=== PATIENT | female | born 1990 | race Caucasian/White ===

== ENCOUNTER → 2018-01-05 09:51 | Outpatient (CLI) | payer MEDICAID, SELFPAY ==
[2018-01-05 11:14] LABS: hCG Titer Quant., Serum < 1 mIU/mL (<9 non-preg)
== END ==
PROVIDERS: Visit Provider Obstetrics & Gynecology
DX: N92.5 Other specified irregular menstruation (principal)
CPT/HCPCS: 36415; 84702

== ENCOUNTER → 2018-03-16 10:34 | Outpatient (CLI) | payer MEDICAID, SELFPAY ==
--- NOTE | 2018-03-16 10:36 | US_ITS ---
STUDY: ULTRASOUND TRANSVAGINAL CLINICAL: Female, 27 years old. Irregular menstruation. Pelvic pain. TECHNIQUE: Transvaginal COMPARISON: None. FINDINGS: The uterus is normal in size contour and position and measures 5.7 x 4.2 x 2.9 cm with an endometrial stripe thickness of 4 mm. Both ovaries are visualized and demonstrate normal Doppler flow. The right ovary measures 3.7 x 3.1 x 2.1 cm and the left 4.0 x 2.8 x 2.2 cm. Multiple follicular cysts are seen at the periphery of both ovaries. Polycystic ovarian disease suspected US/Pelvic (Non ) IMPRESSION: Prominent ovaries with follicular cysts arranged at the periphery. Polycystic ovarian disease suspected. No free fluid in the cul-de-sac Electronically Signed: Clay Lr, at 7:29 EDT Tel , Service support ,
--- NOTE | 2018-03-16 11:03 | US_ITS ---
STUDY: ULTRASOUND TRANSVAGINAL CLINICAL: Female, 27 years old. Irregular menstruation. Pelvic pain. TECHNIQUE: Transvaginal COMPARISON: None. FINDINGS: The uterus is normal in size contour and position and measures 5.7 x 4.2 x 2.9 cm with an endometrial stripe thickness of 4 mm. Both ovaries are visualized and demonstrate normal Doppler flow. The right ovary measures 3.7 x 3.1 x 2.1 cm and the left 4.0 x 2.8 x 2.2 cm. Multiple follicular cysts are seen at the periphery of both ovaries. Polycystic ovarian disease suspected US/Transvaginal Non- IMPRESSION: Prominent ovaries with follicular cysts arranged at the periphery. Polycystic ovarian disease suspected. No free fluid in the cul-de-sac Electronically Signed: Clay Lr, at 7:29 EDT Tel , Service support ,
== END ==
PROVIDERS: Family Provider Preventive Medicine Occupational Medicine; PCP Preventive Medicine Occupational Medicine; Visit Provider Obstetrics & Gynecology
DX: N92.6 Irregular menstruation, unspecified (principal); N80.3 Endometriosis of pelvic peritoneum; E28.2 Polycystic ovarian syndrome
CPT/HCPCS: 76830; 76856; 93976

== ENCOUNTER → 2018-04-11 13:35 | Outpatient (CLI) | payer MEDICAID, SELFPAY ==
[2018-04-11 16:26] LABS: Chlamydia Trachomatis by PCR Negative (Negative); Neisserai gonorrhoeae by PCR Negative (Negative); Probe Check PASS; Sample Adequacy Control PASS; Specimen Processing Control PASS
[2018-04-14 11:11] LABS: HPV Reflexed? NOT INDICATED
== END ==
PROVIDERS: Visit Provider Obstetrics & Gynecology
DX: Z01.419 Encounter for gynecological examination (general) (routine) without abnormal findings (principal); Z11.3 Encounter for screening for infections with a predominantly sexual mode of transmission
CPT/HCPCS: 87491; 87591; 88175; G0145

== ENCOUNTER 2018-04-13 17:39 | Emergency (ER) | payer MEDICAID, SELFPAY ==
[2018-04-13 17:39] VITALS: BP 134/89; PULSE 114; RESP 18; TEMP 37; O2SAT 98; BMI 32.8
[2018-04-13] MEDS: Morphine 4 MG/ML Syringe IV (18:47)
[2018-04-13] MEDS: Ondansetron 4 MG/2 ML Vial IV (18:48)
[2018-04-13] MEDS: 0.9% Normal Saline 1,000 ML 1000 ML IV (18:48)
[2018-04-13 18:51] LABS: Absolute Lymphocyte Count 5.15 X10^3/ul (0.83-4.51); Absolute Neutrophil Count 5.8 X10^3/uL (2.0-7.7); Basophil# 0.02 X10^3/uL; Basophil% 0.2 % (0-1); Differential Indicated SCAN CRITERIA MET; Eosinophil# 0.39 X10^3/uL; Eosinophils% 3.2 % (0-5); Hematocrit 41.3 % (37-47); Hemoglobin 13.8 g/dl (12.0-15.0); Lymphocyte # 5.15 X10^3/ul (4.0); Lymphocyte % 41.9 % (19-41); Mean Corp Hgb Conc 33.4 g/gl (32-36); Mean Corpuscular Hgb 30.9 pg (27.0-32.0); Mean Corpuscular Volume 92.4 fL (81-99); Mean Platelet Vol. 10.3 fl (6.2-12.0); Monocyte# 0.94 X10^3/uL; Monocyte% 7.6 % (0-10); Neutrophil # 5.77 X10^3/uL (2.7-7.7); Neutrophil % 46.9 % (47-70); POSITIVE COUNT NO; POSITIVE DIFFERENTIAL YES; POSITIVE MORPHOLOGY YES; Platelet Count 346 K/mm3 (150-450); RBC Distribution Width CV 12.9 % (11.6-14.6); RBC Distribution Width SD 43.6 fl (35.1-43.9); Red Blood Count 4.47 M/mm3 (4.2-5.4); White Blood Count 12.3 K/mm3 (4.4-11.0)
[2018-04-13 19:12] LABS: Pregnancy, Serum, hCG Quali. NEGATIVE Negative (0-9 Nonpreg)
[2018-04-13 19:14] LABS: Differential Comment SCANNED
--- NOTE | 2018-04-13 19:33 | ED.DCSUM_ITS ---
- ER Visit Summary Date of Service: 04/13/18 Chief Complaint: Vaginal bleeding and pelvic pain History of Present Illness: The patient is a [address] Elana Puente. She reports that she has vaginal bleeding that has been essentially constant for the past year. She states it became heavier yesterday. She reports changing a tampon approximately 18 times per day. She also has pelvic pain that began yesterday. She describes it as a stabbing, throbbing pain that is 10 out of 10 severity. Is worsened by movement and relieved by remaining still. She is not taking anything for pain. She denies any vaginal discharge. No dysuria or frequency. She is a . She does have a history of polycystic ovarian syndrome and endometriosis. Physical Examination: Vitals: Stable. Afebrile. General: Well-nourished and well-developed. Head: Normocephalic atraumatic. Neck: Supple, no lymphadenopathy. No JVD. Nontender. Cardiovascular: Regular rate and rhythm. No murmurs. Respiratory: No respiratory distress. Clear to auscultation bilaterally. Abdominal: Soft, moderate suprapubic tenderness to palpation, nondistended, normal bowel sounds. No guarding, rebound, or peritoneal signs. Pelvic: Refused. Back: Nontender. Extremities: Nontender, no edema. Skin: Normal color, no rash. Neurologic: Alert and oriented ?3. Cranial nerves II through XII are intact. Normal strength and sensation. Psych: Normal affect. Test Results: CBC is remarkable for a white count of 12.3 with 47 segmented neutrophils and 42 lymphocytes. Of note her hemoglobin is 13.8. Her test is negative. Patient refused an ultrasound. Emergency Department Course and Treatment: Patient was given a dose of morphine and Zofran IV. She is resting comfortably. Treatment Plan: The patient has an appointment to see Dr. Elana Puente tomorrow. She will be given a prescription for 6 Percocet for pain overnight. Instructed to follow-up as previously scheduled for further evaluation and treatment. Return to the emergency department for any worsening symptoms. Disposition: To home in improved and stable condition. Impression: 1. Dysfunctional uterine bleeding. This note was generated with [employer] software. It may contain incorrect words, spelling, and punctuation that were not noted in review of the chart prior to signing ED Disposition - Plan for ED Patient: Disposition: Home or Assisted Living Chief Complaint: Vag Bleeding Instructions: ED Bleed Irregular Vaginal Prescriptions: Oxycodone HCl/Acetaminophen [Percocet 5/325] 1 tablet PO Q6H PRN PRN 2 Days #6 tablet PRN Reason: Pain Naproxen [Naprosyn] 500 mg PO BID #14 tablet Referrals: Cathy Rosales MD [STAFF PHYSICIAN] - Keep Ines appointment
[2018-04-13 19:45] VITALS: BP 128/74; PULSE 89; RESP 16; O2SAT 99
== END 2018-04-13 19:45 | disposition home or self-care (01) ==
LOC: ED 18:30
PROVIDERS: Emergency Provider Emergency Medicine; Family Provider Preventive Medicine Occupational Medicine; PCP Preventive Medicine Occupational Medicine
DX: N93.8 Other specified abnormal uterine and vaginal bleeding (principal); F90.9 Attention-deficit hyperactivity disorder, unspecified type; G44.009 Cluster headache syndrome, unspecified, not intractable; Z72.0 Tobacco use
CPT/HCPCS: 84703; 85025; 99283; J7030; A4216; J2405

== ENCOUNTER → 2018-04-14 11:27 | Outpatient (CLI) | payer MEDICAID, SELFPAY ==
[2018-04-14 14:08] LABS: Cholesterol 218 mg/dL (200); Glucose 88 mg/dL (74-106); High Density Lipoprotein 50 mg/dL; Triglycerides 113 mg/dL; Very Low Density Lipoprotein 23 mg/dL (5-40)
[2018-04-15 08:29] LABS: Insulin 8.6 mU/L (2.6-37.6); Vitamin B12 381 pg/mL (211-911); Vitamin D,25 Hydroxy 37.4 ng/mL (29.95-100.01)
== END ==
PROVIDERS: Visit Provider Obstetrics & Gynecology
DX: E28.2 Polycystic ovarian syndrome (principal); Z68.30 Body mass index [BMI] 30.0-30.9, adult
CPT/HCPCS: 36415; 80061; 82306; 82607; 82947; 83525

== ENCOUNTER → 2018-04-22 16:16 | Outpatient (CLI) | payer MEDICAID, SELFPAY ==
--- NOTE | 2018-04-22 12:50 | ECC_PTH ---
PATIENT: LEILA DANIELS LOC: [facility] U#:[id number] AGE/SX: 34/F ROOM: RE04/22/[address]: Dr. Cathy Puente MD : 1990 BED: DIS: SPEC #: [id number] RECD: 04/22/18 16:05 STATUS: RANGEL RACHELLE #: [id number] VIKRAM: 04/22/18 12:[address]: Cathy Arredondo DEPT: SURGICAL PATHOLOGY RECD BY: Gerry Douglas ENTERED: 04/25/18 13:32 SP TYPE: SONY YANES DR: Dr. Yaw Daniels DO Tissues: Endocervical Procedures: Surgery Specimen Level IV HEADER OPERATION: ECC PRE-OP DIAGNOSIS: LGSIL, pap 04/11/18, LMP 04/12/18 TISSUE SUBMITTED: E[facility] MICROSCOPIC DIAGNOSIS Endocervix, curettings: Rare benign endocervical cells are present. AM:deisy 04/26/18 MICROSCOPIC DESCRIPTION Slides are reviewed. GROSS DESCRIPTION Received is one container labeled with the patient's name and not further designated. The specimen consists of multiple irregular fragments of light diaz soft tissue that in aggregate measure 1 x 0.8 x <0.1 cm. The specimen is totally submitted in one cassette. / AM:deisy 04/25/18 TC:5 CPT: 05174
== END ==
PROVIDERS: Family Provider Preventive Medicine Occupational Medicine; PCP Preventive Medicine Occupational Medicine; Visit Provider Obstetrics & Gynecology
DX: R87.612 Low grade squamous intraepithelial lesion on cytologic smear of cervix (LGSIL) (principal)
CPT/HCPCS: 88305

== ENCOUNTER → 2018-09-15 10:59 | Outpatient (CLI) | payer MEDICAID, SELFPAY ==
[2018-09-15 16:19] LABS: hCG Titer Quant., Serum 1 mIU/mL (<9 non-preg)
[2018-09-15 16:32] LABS: Progesterone Level 0.52 ng/mL (See Comment)
--- OUTSIDE RECORDS SUMMARY | 2018-11-20 02:08 | XMS RPT_ITS ---
:1990 Author Organization [place] Support Name Relationship Address Phone PITANN Unavailable [address] + [place] [address] FRANCES, ERIKA Unavailable [address] + [place] [address] MARTA CHAPARRO Unavailable Unavailable + MENG, DANE Unavailable [address] + [place] [address] MENG, DANE Unavailable [address] + [place] [address] GLENNH Unavailable [address] + [place] [address] FRANCES, ERIKA Unavailable [address] + [place] [address] GLENNH Unavailable [address] + [place] [address] FRANCES, ERIKA Unavailable [address] + [place] [address] GLENNH Unavailable [address] + [place] [address] FRANCES, ERIKA Unavailable [address] + [place] [address] UE Unavailable Unavailable Unavailable FRANCES, ERIKA Unavailable [address] + [place] [address] UE Unavailable Unavailable Unavailable MENG, DANE Unavailable [address] + [place] [address] FRANCES, ERIKA Unavailable [address] + [place] [address] UE Unavailable Unavailable Unavailable MENG, DANE Unavailable [address] + [place] [address] MARTA CHAPARRO Unavailable Unavailable + MENG, DANE Unavailable [address] + [place] [address] MENG, DANE Unavailable [address] + [place] [address] MARTA CHAPARRO Unavailable Unavailable + MENG, DANE Unavailable [address] + [place] [phone] MENG, DANE Unavailable [address] + [place] [address] ERIKA DANIELS Unavailable [address] + [place] [address] UE Unavailable Unavailable Unavailable MENG, DANE Unavailable [address] + [place] [phone] MARTA CHAPARRO Unavailable Unavailable + MENG, DANE Unavailable [address] + [place] [phone] MENG, DANE Unavailable [address] + [place] [phone] MARTA CHAPARRO Unavailable Unavailable + MENG, DANE Unavailable [address] + [place] [phone] MENG, DANE Unavailable [address] + [place] [address] Care Team Providers Name Role Phone AMY DANIELS Primary Care Unavailable Carey Oropeza MD Attending Unavailable Carey Oropeza MD Attending Unavailable AMY DANIELS Primary Care Unavailable ABI SANTOS MD Attending Unavailable AMY DANIELS Primary Care Unavailable CLAUDETTE ANAND Attending Unavailable AMY DANIELS Primary Care Unavailable JADE NICK DO Attending Unavailable AMY DANIELS Primary Care Unavailable Cathy Rosales Attending Unavailable Cathy Rosales Attending Unavailable Cathy Rosales Attending Unavailable Cathy Rosales Referring Unavailable Amy Daniels Primary Care Unavailable Cathy Rosales Attending Unavailable Amy Daniels Primary Care Unavailable Teo Stuart Attending Unavailable ConnieCathy Attending Unavailable Connie Summer Attending Unavailable Amy Daniels Primary Care Unavailable GretchenKwame Summer Referring Unavailable PROBLEMS PROBLEMS DATE TYPE CONDITION / CODE ATTENDING STATUS SOURCE 09/15/2018 Unknown N91.2 - Amenorrhea, Connie Active [place] unspecified / [facility] N91.2(ICD-10) Hospital Repository 04/14/2018 Unknown Z68.30 - Body mass Connie Active [place] index (BMI) [facility] 30.0-30.9, adult / Hospital Z68.30(ICD-10) Repository 04/13/2018 Unknown R10.2 - Pelvic and Teo Stuart Active [place] perineal pain / Community R10.2(ICD-10) Hospital Repository 04/11/2018 Unknown Z12.4 - Encounter Connie Active [place] for screening for [facility] malignant neoplasm Hospital of cervix / Repository Z12.4(ICD-10) 04/11/2018 Unknown Z01.419 - Encounter Connie Active [place] for gynecological [facility] examination Hospital (general) (routine) Repository without abnormal findings / Z01.419(ICD-10) 04/11/2018 Unknown Z11.3 - Encounter Connie Active [place] for screening for [facility] infections with a Hospital predominantly Repository sexual mode of transmission / Z11.3(ICD-10) 03/16/2018 Unknown N92.6 - Irregular Elana-Kwame, Active [place] menstruation, [facility] unspecified / Hospital N92.6(ICD-10) Repository 01/05/2018 Unknown N92.5 - Other Elana-Kwame, Active [place] specified irregular [facility] menstruation / Hospital N92.5(ICD-10) Repository PROCEDURES PROCEDURES No Procedure Records FoundRESULTS RESULTS HCG TITER QUANT., Collected: 09/15/2018 Status: F Source: [place] 11:03 AM [facility] REPOSITORY TYPE CODE TESTS RESULT OUT OF RANGE REFERENCE UNITS LAB L700.8000 <9 non-preg mIU/mL Normal HCG 1 QUANT. Performed By: #### L700.8000 #### [facility] [place], [address] PROGESTERONE LEVEL Collected: 09/15/2018 Status: F Source: [place] 11:03 AM [facility] REPOSITORY TYPE CODE TESTS RESULT OUT OF REFERENCE UNITS RANGE LAB L509.4001 See Comment ng/mL Progesterone Normal 0.52 Result Comment: Progesterone Reference Table: UNITS Female: Follicular 0.15 - 1.40 ng/mL Luteal 3.34 - 25.56 ng/mL Mid-luteal 4.44 - 28.03 ng/mL Postmenopausal 0.0 - 0.73 ng/mL : 1st Trimester 11.22 - 90.00 ng/mL 2nd Trimester 25.55 - 89.40 ng/mL 3rd Trimester 48.40 -422.50 ng/mL Performed By: #### L509.4001 #### [facility] [address] [place], [address] CT ABD/PELVIS W/ IV Observed: 07/24/2018 Status: F Source: [facility] [employer] CONTRAST ONLY 11:55 PM [facility] REPOSITORY ORIGINAL CT ABD/PELVIS W/ IV CONTRAST ONLY CLINICAL STATEMENT: pain COMPARISON: 12/16/2015 and 11/24/15 TECHNIQUE: Axial images were obtained from the lung bases through the pubic symphysis after the ministration of IV contrast.. Coronal reformatted images were generated from the axial dataset. This exam was performed according to our departmental dose optimization program, and includes the following measures where applicable: automated exposure control, adjustment of the mAs and/or kVp according to pat ient size and/or exam, and an iterative reconstruction algorithm. FINDINGS: Lung bases are clear. There is no pericardial effusion. The gallbladder is contracted and therefore cannot be well assessed. The liver, spleen, adrenal glands and pancreas are unremarkable. There is no hydronephrosis or urolithiasis or perinephric stranding. Kidneys enhance symmetrically. The uterus is appropriate in appearance for patient's age. The adnexa do not appear significantly carney ged from previous comparison studies. The visualized esophagus and stomach are unremarkable. There are no dilated loops of small bowel to suggest obstruction. The appendix is normal in appearance. There is no pericolonic fat stranding to suggest colitis. There is no free fluid, free air pathologically enlarged lymph nodes in the abdomen or pelvis. The aorta is normal in course and caliber. No suspicious osseous abnormality is demonstrated. IMPRESSION: No acute abnormality. I have personally reviewed the images of this examination and agree with the resident's findings and interpretation. Interpreted By: Scott Aguirre MD Preliminary Report By: Rafal Bhatt MD Electronically Signed By: Scott Aguirre MD Dictated Date: 07/25/2018 12:00:17 AM Prelim Date: 07/25/2018 12:12:54 AM Sign Date: 07/25/2018 1:19:37 AM UA Collected: 07/24/2018 Status: F Source: [facility] 10:44 PM [facility] REPOSITORY TYPE CODE TESTS RESULT OUT OF RANGE REFERENCE UNITS LAB SPCUA(ANTOINE NC) UA Specimen Type Clean Catch LAB CLRUA(ANTOINE NC) UA Color Yellow LAB APPUA(ANTOINE Clear NC) UA Appear Unknown Cloudy LAB SGUA(LOIN C) UA Spec Unknown Grav 1.010 LAB GLUA(LOIN Negative mg/dL C) UA Glucose Negative LAB BILUA(ANTOINE Negative NC) UA Bili Negative LAB KETUA(ANTOINE Negative mg/dL NC) UA Ketones Negative LAB BLDUA(ANTOINE Negative NC) UA Blood Negative LAB PHUA(LOIN C) UA pH 8.0 LAB PROUA(ANTOINE Negative mg/dL NC) UA Protein Negative LAB UROUA(ANTOINE E.U./dL NC) UA Urobilinogen 0.2 LAB NITUA(ANTOINE Negative NC) UA Nitrite Negative LAB LEUUA(ANTOINE Negative NC) UA Leuk Est Negative Performed By: #### UA, PREGU, UAMICAO #### [address] [address] PREGU Collected: 07/24/2018 Status: F Source: [facility] 10:44 PM [facility] REPOSITORY TYPE CODE TESTS RESULT OUT OF RANGE REFERENCE UNITS LAB PREGU(LOIN C) Test Negative Urine LAB PRUG1(LOIN C) Unknown test HCG not (u) int detected. Performed By: #### UA, PREGU, UAMICAO #### [address] [address] .URINALYSIS MICROSCOPIC Collected: 07/24/2018 Status: F Source: [place] () 10:44 PM [facility] REPOSITORY TYPE CODE TESTS RESULT OUT OF RANGE REFERENCE UNITS LAB WBCUA(LOIN None Seen /hpf C) UA WBC None Seen LAB RBCUA(LOIN None Seen /hpf C) UA RBC None Seen LAB EPIUA(LOIN None Seen /hpf C) Unknown UA Squam Epithelial 0-5 LAB AMOUA(LOIN /hpf C) UA Amorphus 3+ Performed By: #### UA, PREGU, UAMICAO #### [place] [address] [place], [place] [address] CBC Collected: 07/24/2018 Status: F Source: [facility] 10:44 PM [facility] REPOSITORY TYPE CODE TESTS RESULT OUT OF REFERENCE UNITS RANGE LAB WBC(LOINC) 4.60-10.80 10 3/mcL High WBC 17.20 LAB RBCCT(LOINC 4.20-5.40 10 6/mcL ) RBC 5.33 LAB HGB(LOINC) 12.0-16.0 G/dL High Hgb 16.4 LAB HCT(LOINC) 37.0-47.0 % High Hct 49.3 LAB MCV(LOINC) 80.0-94.0 fL MCV 92.5 LAB MCH(LOINC) 27.0-31.2 pg MCH 30.7 LAB MCHC(LOINC) 33.0-37.0 G/dL MCHC 33.2 LAB RDW(LOINC) 11.5-14.5 % RDW 13.4 LAB PLT(LOINC) 130-400 10 3/mcL Platelet 317 LAB MPV(LOINC) 7.4-10.4 fL MPV 9.6 Performed By: #### CBC, ADIFF, ANEU #### [address] [address] #### LIP, CMP, GFR #### [address] [address] .AUTO DIFF Collected: 07/24/2018 Status: F Source: [facility] 10:44 PM [facility] REPOSITORY TYPE CODE TESTS RESULT OUT OF REFERENCE UNITS RANGE LAB ISABELL(LOINC) 37.0-80.0 % Neutrophil % 47.3 LAB LYM(LOINC) 10.0-50.0 % Lymphocyte % 42.3 LAB MON(LOINC) 1.7-13.0 % Monocyte % 6.4 LAB EO(LOINC) 0.0-7.0 % Eosinophil % 3.3 LAB BAS(LOINC) 0.0-2.5 % Basophil % 0.7 LAB ABLYM(LOIN 0.77-3.85 10 3/mcL C) High Lymphocyte, 7.30 Absolute LAB ELIO(LOINC 0.15-1.00 10 3/mcL ) High Monocyte, 1.10 Absolute LAB AEOS(LOINC 0.00-0.40 10 3/mcL ) High Eosinophil, 0.60 Absolute LAB ABAS(LOINC 0.00-0.19 10 3/mcL ) Basophil, 0.10 Absolute Performed By: #### CBC, ADIFF, ANEU #### [address] [address] #### LIP, CMP, GFR #### [place] [address] .NEUABS Collected: 07/24/2018 Status: F Source: [facility] 10:44 PM [facility] REPOSITORY TYPE CODE TESTS RESULT OUT OF REFERENCE UNITS RANGE LAB ANEU(LOINC) 2.85-6.16 10 3/mcL High Neutrophil, 8.10 Absolute Performed By: #### CBC, ADIFF, ANEU #### [address] [address] #### LIP, CMP, GFR #### [place] [address] LIP Collected: 07/24/2018 Status: F Source: [facility] 10:44 [facility] REPOSITORY TYPE CODE TESTS RESULT OUT OF REFERENCE UNITS RANGE LAB LIP(LOINC) 73-393 U/L Lipase Level 195 Performed By: #### CBC, ADIFF, ANEU #### [place] [id number] #### LIP, CMP, GFR #### [place] [address] CMP Collected: 07/24/2018 Status: F Source: [facility] 10:44 PM [facility] REPOSITORY TYPE CODE TESTS RESULT OUT OF REFERENCE UNITS RANGE LAB GLU(LOINC) 70-105 mg/dL Glucose Level 94 LAB NA(LOINC) 136-145 mmol/L Sodium Level 138 LAB K(LOINC) 3.5-5.1 mmol/L Potassium Level 4.8 LAB CL(LOINC) 98-107 mmol/L Chloride 103 LAB CO2(LOINC) 22-29 mmol/L CO2 23 LAB EBAL(LOINC mEq/L ) Electrolyte Balance 12.0 LAB BUN(LOINC) 7-18 mg/dL BUN 9 LAB CRE(LOINC) 0.55-1.02 mg/dL Low Creatinine Lvl (s) 0.48 LAB BC(LOINC) 7-27 ratio BUN/Creatinine 19 Ratio LAB CA(LOINC) 8.4-10.2 mg/dL Calcium Lvl 9.1 LAB PROT(LOINC 6.4-8.2 G/dL ) Total Protein 7.9 LAB ALB(LOINC) 3.5-5.0 G/dL Albumin Level 4.5 LAB GLB(LOINC) G/dL Globulin 3.4 LAB AG(LOINC) 1.1-2.5 ratio A/G Ratio 1.3 LAB BILT(LOINC 0.2-1.0 mg/dL ) Bili Total 0.3 LAB AP(LOINC) 40-135 U/L Alk Phos 86 LAB AST(LOINC) 10-40 U/L AST/SGOT 33 LAB ALT(LOINC) 10-35 U/L ALT/SGPT 27 Performed By: #### CBC, ADIFF, ANEU #### [address] [address] #### LIP, CMP, GFR #### [address] [address] .GFR Collected: 07/24/2018 Status: F Source: [facility] 10:44 PM [facility] TYPE CODE TESTS RESULT OUT OF REFERENCE UNITS RANGE LAB GFRAA(LOINC ml/min/1.73 ) sqm GFR 189 [place] Result Comment: GFR Population mean for , Non- Americans Ages 20-29 = 116 mL/min/1.73 sq.m. Ages 30-39 = 107 mL/min/1.73 sq.m. Ages 40-49 = 99 mL/min/1.73 sq.m. Ages 50-59 = 93 mL/min/1.73 sq.m. Ages 60-69 = 85 mL/min/1.73 sq.m. Ages 70+ = 75 mL/min/1.73 sq.m. Chronic Kidney Disease: Less than 60 mL/min/1.73 square meters End Stage Renal Disease: Less than 15 mL/min/1.73 square meters LAB GFRNO(LOINC) ml/min/1.73sqm GFR Non- 156 Result Comment: GFR Population mean for , Non- Americans Ages 20-29 = 116 mL/min/1.73 sq.m. Ages 30-39 = 107 mL/min/1.73 sq.m. Ages 40-49 = 99 mL/min/1.73 sq.m. Ages 50-59 = 93 mL/min/1.73 sq.m. Ages 60-69 = 85 mL/min/1.73 sq.m. Ages 70+ = 75 mL/min/1.73 sq.m. Chronic Kidney Disease: Less than 60 mL/min/1.73 square meters End Stage Renal Disease: Less than 15 mL/min/1.73 square meters Performed By: #### CBC, ADIFF, ANEU #### [address] [address] #### LIP, CMP, GFR #### [address] [address] ENDOCER CURETT/BIOPSY Observed: 04/22/2018 Status: F Source: [place] 12:50 PM [facility] REPOSITORY Patient: LEILA DANIELS : 1990 (/) Acct Num: [id number] Phys: Connie BARTON,Summer Unit Num: [id number] Loc: LABSPEC Specimen: [id number] Received: 04/22/18 - 160 Spec Type: ECC TISSUES TISSUES: Endocervical GROSS DESCRIPTION Received is one container labeled with the patient's name and not further designated. The specimen consists of multiple irregular fragments of light diaz soft tissue that in aggregate measure 1 x 0.8 x <0.1 cm. The specimen is totally submitted in one cassette. / AM:deisy 04/25/18 TC:5 CPT: 96048 HEADER OPERATION: ECC PRE-OP DIAGNOSIS: LGSIL, pap 04/11/18, LMP 04/12/18 TISSUE SUBMITTED: ECC MICROSCOPIC DESCRIPTION Slides are reviewed. MICROSCOPIC DIAGNOSIS Endocervix, curettings: Rare benign endocervical cells are present. AM:[place] 04/26/18 Signed Panfilo Montoya 04/26/18 <signature on file> Performed By: #### PECC #### [facility] [address] [place], [address] EMERGENCY DEPARTMENT Observed: 04/14/2018 Status: F Source: [place] SUMMARY 2:54 PM [facility] REPOSITORY [facility] Medical Records Department [address] [place] [address] Emergency Department Summary 04/13/18 1932 MR#: [id number] Acct: [id number] Name: LEILA DANIELS Rep #: [id number] : 1990 27 From: Teo Stuart MD PCP: Amy Daniels DO Status: DEP ER - ER Visit Summary Date of Service: 04/13/18 Chief Complaint: Vaginal bleeding and pelvic pain History of Present Illness: The patient is a [address] Elana Puente. She reports that she has vaginal bleeding that has been essentially constant for the past year. She states it became heavier yesterday. She reports changing a tampon approximately 18 times per day. She also has pelvic pain that began yesterday. She describes it as a stabbing, throbbing pain that is 10 out of 10 severity. Is worsened by movement and relieved by remaining still. She is not taking anything for pain. She denies any vaginal discharge. No dysuria or frequency. She is a . She does have a history of polycystic ovarian syndrome and endometriosis. Physical Examination: Vitals: Stable. Afebrile. General: Well-nourished and well-developed. Head: Normocephalic atraumatic. Neck: Supple, no lymphadenopathy. No JVD. Nontender. Cardiovascular: Regular rate and rhythm. No murmurs. Respiratory: No respiratory distress. Clear to auscultation bilaterally. Abdominal: Soft, moderate suprapubic tenderness to palpation, nondistended, normal bowel sounds. No guarding, rebound, or peritoneal signs. Pelvic: Refused. Back: Nontender. Extremities: Nontender, no edema. Skin: Normal color, no rash. Neurologic: Alert and oriented 3. Cranial nerves II through XII are intact. Normal strength and sensation. Psych: Normal affect. Test Results: CBC is remarkable for a white count of 12.3 with 47 segmented neutrophils and 42 lymphocytes. Of note her hemoglobin is 13.8. Her test is negative. Patient refused an ultrasound. Emergency Department Course and Treatment: Patient was given a dose of morphine and Zofran IV. She is resting comfortably. Treatment Plan: The patient has an appointment to see Dr. Elana Puente tomorrow. She will be given a prescription for 6 Percocet for pain overnight. Instructed to follow-up as previously scheduled for further evaluation and treatment. Return to the emergency department for any worsening symptoms. Disposition: To home in improved and stable condition. Impression: 1. Dysfunctional uterine bleeding. This note was generated with [employer]EL[employer] dictation software. It may contain incorrect words, spelling, and punctuation that were not noted in review of the chart prior to signing ED Disposition - Plan for ED Patient: Disposition: Home or Assisted Living Chief Complaint: Vag Bleeding Instructions: ED Bleed Irregular Vaginal Prescriptions: Oxycodone HCl/Acetaminophen [Percocet 5/325] 1 tablet PO Q6H PRN PRN 2 Days #6 tablet PRN Reason: Pain Naproxen [Naprosyn] 500 mg PO BID #14 tablet Referrals: Cathy Rosales MD [STAFF PHYSICIAN] - Keep Ines appointment What to do if you have Problems For any increased pain, shortness of breath, bleeding, nausea or vomiting, chest pain, or any unexpected problems, contact your Primary Care Provider. Call [facility] ([phone]) or report to the closest Emergency Room. Call 911 if necessary. 04/14/18 2480 <Electronically signed by Teo Stuart MD> Date Teo Stuart MD Cosigner Signature (If Indicated): Date CC: Amy Daniels LIPID PROFILE Collected: 04/14/2018 Status: F Source: [place] 11:31 AM [facility] REPOSITORY TYPE CODE TESTS RESULT OUT OF RANGE REFERENCE UNITS LAB L501.4900 200 mg/dL High CHOL 218 Result Comment: <200 mg/dL Desirable 200-240 mg/dL Borderline >240 mg/dL High Risk LAB L501.5000 mg/dL Normal TRIG 113 Result Comment: The drugs N-Acetylcysteine and Metamizole may falsely depress this assay. Serum Triglycerides Reference Interval Normal <150 mg/dL Borderline high 150 - 199 mg/dL High 200 - 499 mg/dL Very High > or = 500 mg/dL LAB L501.6400 mg/dL Normal HDL 50 Result Comment: The drugs N-Acetylcysteine and Metamizole may falsely depress this assay. Reference Range HDL <40 mg/dL Low HDL Cholesterol HDL >or= 60 mg/dL High HDL Cholesterol LAB L501.6500 0-130 mg/dL High LDL 145 LAB L501.6600 5-40 mg/dL Normal VLDL 23 Performed By: #### L500.4100, L501.0100 #### [facility] [address] [place], [address] GLUCOSE Collected: 04/14/2018 Status: F Source: [place] 11:31 AM [facility] REPOSITORY TYPE CODE TESTS RESULT OUT OF RANGE REFERENCE UNITS LAB L501.0100 74-106 mg/dL Normal GLU 88 Result Comment: Please note revised GLUCOSE reference range effective 2017. Performed By: #### L500.4100, L501.0100 #### [facility] [address] [place], [address] VITAMIN B12 Collected: 04/14/2018 Status: F Source: [place] 11:31 AM [facility] REPOSITORY TYPE CODE TESTS RESULT OUT OF RANGE REFERENCE UNITS LAB L503.0105 211-911 pg/mL Normal Vitamin B12 381 Performed By: #### L503.0105, L506.1000, [id number] #### [facility] [address] [place], [address] VITAMIN D,25 HYDROXY Collected: 04/14/2018 Status: F Source: [place] 11:31 AM [facility] REPOSITORY TYPE CODE TESTS RESULT OUT OF RANGE REFERENCE UNITS LAB L506.1000 29.95-100.01 ng/mL Normal Vitamin D 37.4 25-OH Result Comment: Vitamin D 25(OH) Status Range Deficiency <20 ng/mL (50nmol/L) Insuffciency 20 - 30 ng/mL (50 - 75 nmol/L) Sufficiency 30 - 100 ng/mL (75 - 250 nmol/L) Toxicity >100 ng/mL (>250 nmol/L) Performed By: #### L503.0105, L506.1000, [id number] #### [facility] [address] [place], [place], [address] INSULIN Collected: 04/14/2018 Status: F Source: [place] 11:31 AM [facility] REPOSITORY TYPE CODE TESTS RESULT OUT OF RANGE REFERENCE UNITS LAB [id number] 2.6-37.6 mU/L Normal Insulin 8.6 Result Comment: Please Note: INSULIN METHOD AND REFERENCE RANGE CHANGE Effective 09/09/2017. Performed By: #### L503.0105, L506.1000, [id number] #### [facility] [address] [place], [place], [address] CBC W/DIFF, AUTOMATED Collected: 04/13/2018 Status: F Source: [place] 6:35 PM [facility] REPOSITORY TYPE CODE TESTS RESULT OUT OF RANGE REFERENCE UNITS LAB L100.1000 4.4-11.0 K/mm3 High WBC 12.3 LAB L100.1200 4.2-5.4 M/mm3 Normal RBC 4.47 LAB L100.1300 12.0-15.0 g/dl Normal HGB 13.8 LAB L100.1400 37-47 % Normal HCT 41.3 LAB L100.1500 81-99 fL Normal MCV 92.4 LAB L100.1600 27.0-32.0 pg Normal MCH 30.9 LAB L100.1700 32-36 g/gl Normal MCHC 33.4 LAB L100.1810 11.6-14.6 % Normal RDW CV 12.9 LAB L100.1820 35.1-43.9 fl Normal RDW SD 43.6 LAB L100.1900 150-450 K/mm3 Normal PLT 346 LAB L100.2000 6.2-12.0 fl Normal MPV 10.3 LAB L100.2100 47-70 % Low NEUT% 46.9 LAB L100.2200 19-41 % High LY% 41.9 LAB L100.2300 0-10 % Normal MONO% 7.6 LAB L100.2400 0-5 % Normal EO% 3.2 LAB L100.2500 0-1 % Normal BASO% 0.2 LAB L100.2550 0.0-0.9 % Normal IM GRAN % 0.200 Result Comment: IG% - Immature Granulocytes (promyelocytes, myelocytes and metamyelocytes) > 1% indicates that a LEFT SHIFT is Present. LAB L100.2620 2.0-7.7 X10 3/uL Normal Absolute Neut 5.8 LAB L100.2720 0.83-4.51 X10 3/ul High Absolute Lymph 5.15 LAB L100.4500 Normal SMEAR COMMENT SCANNED Result Comment: LYMPHOCYTOSIS NOTED Performed By: #### L100.0100 #### [facility] [address] [place], [place], [address] ,SERUM,HCG QUALI. Collected: Status: F Source: [place] 04/13/2018 6:35 PM [facility] REPOSITORY TYPE CODE TESTS RESULT OUT OF REFERENCE UNITS RANGE LAB L700.7000 0-9 Nonpreg Negative Normal HCGSQUAL NEGATIVE LAB L700.6700 =>Qualitative mIU/mL Normal HCG Qual < 1 triggr Performed By: #### L700.6800 #### [facility] [address] [place], [place], [address] CT/NG WCH BY PCR Collected: 04/11/2018 Status: F Source: [place] 9:00 AM [facility] REPOSITORY Order Comment: CYTOLOGY INFORMATION: - CLINICAL INFORMATION: - DATE LMP/MENOPAUSE: 04/02/18 LMP - COLLECTION VIAL: Thin Prep Vial - SKI LIFT ATTENDANT SOURCE: CERVICAL/ENDOCERVICAL - COLLECTION TECHNIQUE: BRUSH/SPATULA TYPE CODE TESTS RESULT OUT OF RANGE REFERENCE UNITS LAB L8200.2100 Negative Normal Chlam Negative Trac PCR LAB L8200.2200 Negative Normal NG by Negative PCR Performed By: #### L8200.2000 #### [facility] [address] [place], [address] PAP I-G W/RFX Collected: 04/11/2018 Status: F Source: [place] [facility] 9:00 AM [facility] REPOSITORY Order Comment: CYTOLOGY INFORMATION: - CLINICAL INFORMATION: - DATE LMP/MENOPAUSE: 04/02/18 LMP - COLLECTION VIAL: Thin Prep Vial - SKI LIFT ATTENDANT SOURCE: CERVICAL/ENDOCERVICAL - COLLECTION TECHNIQUE: BRUSH/SPATULA Specimen Comment: [id number] Specimen Comment: No. of containers..01 ThinPrep Vial TYPE CODE TESTS RESULT OUT OF REFERENCE UNITS RANGE LAB L7400.0800 . High DIAGN Comment Result Comment: EPITHELIAL CELL ABNORMALITY. LOW-GRADE SQUAMOUS INTRAEPITHELIAL LESION (LGSIL); MILD DYSPLASIA IS PRESENT. LAB L7400.0900 . Normal ADEQ Comment Result Comment: Satisfactory for evaluation. Endocervical and/or squamous metaplastic cells (endocervical component) are present. LAB L7400.1400 . Normal PERFORM Comment Result Comment: Ailyn Berrios Timber Grader (ASCP) LAB L7400.1700 . Normal SIGN Comment Result Comment: Yumiko Sanders MD, Pathologist LAB L7400.1720 . Normal Path prov. Comment ICD9 Result Comment: R87.612 LAB L7400.2575 . Normal TEST METHOD Comment Result Comment: This liquid based ThinPrep(R) pap test was screened with the use of an image guided system. LAB L7400.2600 . Normal . COMM LAB L7400.2700 . Normal PAPSMR Comment Result Comment: The Pap smear is a screening test designed to aid in the detection of premalignant and malignant conditions of the uterine cervix. It is not a diagnostic procedure and should not be used as the sole means of detecting cervical cancer. Both false-positive and false-negative reports do occur. LAB L7400.2800 . Normal HPV RFLX Comment Result Comment: The HPV DNA reflex criteria were not met with this specimen result therefore, no HPV testing was performed. Performed at: [address]Babatunde wardtonLeora [id number] Editor Producer: Patricia Yan MD, Phone: [phone] Performed By: #### L7400.0353 #### [facility] (refer to report for specific site) refer to report for address and phone number TRANSVAGINAL Observed: 03/16/2018 Status: F Source: LEONARDO NON- 11:04 AM [facility] REPOSITORY [facility] Imaging Services [address] [place] [address] Transvaginal Non- MR#: [id number] Acct: [id number] Name: LEILA DANIELS Rep #: [id number] : 1990 F 27 From: Clay Lr MD PCP: Amy Daniels DO Status: REG CLI Study: Transvaginal Non- Date of Exam: 03/16/18 Exam# [id number] Ordering Dr: Cathy Manzo MD STUDY: ULTRASOUND TRANSVAGINAL CLINICAL: Female, 27 years old. Irregular menstruation. Pelvic pain. TECHNIQUE: Transvaginal COMPARISON: None. FINDINGS: The uterus is normal in size contour and position and measures 5.7 x 4.2 x 2.9 cm with an endometrial stripe thickness of 4 mm. Both ovaries are visualized and demonstrate normal Doppler flow. The right ovary measures 3.7 x 3.1 x 2.1 cm and the left 4.0 x 2.8 x 2.2 cm. Multiple follicular cysts are seen at the periphery of both ovaries. Polycystic ovarian disease suspected US/Transvaginal Non- IMPRESSION: Prominent ovaries with follicular cysts arranged at the periphery. Polycystic ovarian disease suspected. No free fluid in the cul-de-sac Electronically Signed: Clay Lr, at 7:29 EDT Tel , Service support , CC: Amy Daniels DO; Cathy Rosales MD Supervisor [employer]: Signed PELVIC (NON ) Observed: 03/16/2018 Status: F Source: LEONARDO 10:37 AM [facility] REPOSITORY [facility] Imaging Services [address] [place] [address] Pelvic (Non ) MR#: [id number] Acct: [id number] Name: LEILA DANIELS Rep #: [id number] : 1990 F 27 From: Clay Lr MD PCP: Amy Daniels DO Status: REG CLI Study: Pelvic (Non ) Date of Exam: 03/16/18 Exam# [id number] Ordering Dr: Cathy Manzo MD STUDY: ULTRASOUND TRANSVAGINAL CLINICAL: Female, 27 years old. Irregular menstruation. Pelvic pain. TECHNIQUE: Transvaginal COMPARISON: None. FINDINGS: The uterus is normal in size contour and position and measures 5.7 x 4.2 x 2.9 cm with an endometrial stripe thickness of 4 mm. Both ovaries are visualized and demonstrate normal Doppler flow. The right ovary measures 3.7 x 3.1 x 2.1 cm and the left 4.0 x 2.8 x 2.2 cm. Multiple follicular cysts are seen at the periphery of both ovaries. Polycystic ovarian disease suspected US/Pelvic (Non ) IMPRESSION: Prominent ovaries with follicular cysts arranged at the periphery. Polycystic ovarian disease suspected. No free fluid in the cul-de-sac Electronically Signed: Clay Lr, at 7:29 EDT Tel , Service support , CC: Amy Rosales MD Supervisor [employer]: Signed XR WRIST MINIMUM 3 Observed: 02/03/2018 Status: F Source: [facility] RIGHT 10:47 PM [facility] REPOSITORY ORIGINAL XR WRIST MINIMUM 3 VIEWS RIGHT CLINICAL STATEMENT: pain/punched a wall yesterday COMPARISON: None FINDINGS: No acute fracture or dislocation is identified. The joint spaces are maintained. There is no radiopaque foreign body. IMPRESSION: No acute fracture or dislocation. I have personally reviewed the images of this examination and agree with the resident's findings and interpretation. Interpreted By: Hosea Santos MD Preliminary Report By: Cherie Mcneill MD Electronically Signed By: Hosea Santos MD Dictated Date: 02/03/2018 10:57:28 PM Prelim Date: 02/03/2018 10:57:54 PM Sign Date: 02/03/2018 11:04:10 PM XR HAND MINIMUM 3 Observed: 02/02/2018 Status: F Source: [facility] VIEWS RIGHT 5:27 PM [facility] REPOSITORY ORIGINAL XR HAND MINIMUM 3 VIEWS RIGHT CLINICAL STATEMENT: pain/punching a wall COMPARISON: None FINDINGS: No acute fracture or dislocation is identified. The joint spaces are maintained. There is no radiopaque foreign body. IMPRESSION: No acute fracture or dislocation. I have personally reviewed the images of this examination and agree with the resident's findings and interpretation. Interpreted By: Hosea Santos MD Preliminary Report By: Cherie Mcneill MD Electronically Signed By: Hosea Santos MD Dictated Date: 02/02/2018 5:34:08 PM Prelim Date: 02/02/2018 5:34:49 PM Sign Date: 02/02/2018 6:04:04 PM HCG TITER QUANT., Collected: 01/05/2018 Status: F Source: LEONARDO SERUM 9:53 AM [facility] REPOSITORY Order Comment: Comments: IF POSITIVE ORDER IS ALSO AN STO TYPE CODE TESTS RESULT OUT OF RANGE REFERENCE UNITS LAB L700.8000 <9 non-preg mIU/mL Normal HCG < 1 QUANT. Performed By: #### L700.8000 #### [facility] [address] [place], [place], [id number] ALLERGIES ALLERGIES DATE TYPE / CODE NAME / CODE REACTION SEVERITY SOURCE 04/13/2018 Drug ketorolac Shortness of Unknown [place] Allergy/416 tromethamine/F00 breath [facility] 527337[facility] 04/13/2018 Drug hydrocodone/F006 Swelling Unknown [place] Allergy/416 394959(RXNORM) Community 833540([email or web address] ED [facility]) Repository 04/13/2018 Drug tramadol/T547459 Rash Unknown [place] Allergy/416 180(RXNORM) Community 747834([email or web address] ED CT) Repository 04/13/2018 Drug strawberry/F0060 Hives Unknown [place] Allergy/416 19303(RXNORM) Community 404198([email or web address] ED CT) Repository ENCOUNTERS ENCOUNTERS ADMIT/DISCHARGE ACCOUNT NUMBER ADMITTING ENCOUNTER LOCATION SOURCE CLASS 09/15/2018 [id number] [facility] ding:WOBLAB Repository 07/24/2018/07/25/20 [id number] Emergency BBuilding:ER [address] [facility] Repository 04/22/2018 [id number] [facility] ding:LABSPEC Repository 04/14/2018 [id number] [facility] ding:WOBLAB Repository 04/13/2018/04/13/20 [id number] Emergency [address] ding:ED Repository 04/11/2018 [id number] Ambulatory [facility] ding:LABSPEC Repository 03/16/2018 [id number] [facility] ding:US Repository 02/03/2018/02/04/20 [id number] Emergency BBuilding:ER [facility] Repository 02/02/2018/02/03/20 [id number] Emergency BBuilding:ER [place] [facility] Repository 01/05/2018 [id number] [facility] ding:WOBLAB Repository 11/15/2017/11/16/19 [id number] Emergency BBuilding:ER [facility] Repository 11/04/2017/11/05/19 [id number] Emergency BBuilding:ER [place] [facility] Repository PAYERS PAYERS ENCOUNTER GUARANTOR PAYER SUBSCRIBER SOURCE 09/15/2018 LEILA Alonzo Primary Insurance:[facility] LEILA Patterson [id number] [facility] [place] Number: [id number] Hospital [address]Cad: 330 [id number] Repository [phone] (HP) Date:6643-94-93NM [address] [address]FB: 09/15/2018 Secondary NOT GIVENUNK [place] Insurance:SELF PAY [facility] Number: Effective Repository Date:2018-09-15 07/24/2018 LEILA Alonzo Primary LEILA Alonzo [facility]: Insurance:[facility]: [facility] [id number] Repository [facility] Number: [place], [place] [id number] [place], [place] [address]Ydu: (330) Date:2018-07-24 11443Bsm: () [id number] [phone] Name:NITHYAO Mahendra ()Tel: (637) [address] [place] [address] 000-0000 () [address]VA: 04/22/2018 LEILA Alonzo Primary Insurance:[facility] LEILA Patterson [id number] [facility] [place] Number: [id number] [facility] [address]Amf: 330 [id number] Repository [phone] (HP) Date:1457-18-76EW [address] [address]TW: 04/22/2018 Secondary NOT GIVENUNK [place] Insurance:SELF PAY [facility] Number: Effective Repository Date:2018-04-22 04/14/2018 LEILA Alonzo Primary Insurance:[facility] LEILA Patterson [id number] [facility] [place] Number: [id number] Hospital [address]Taz: [phone] [id number] Repository [phone] (HP) Date:4259-09-91QA [address] [address]GH: 04/14/2018 Secondary NOT GIVENUNK [place] Insurance:SELF PAY [facility] Number: Effective Repository Date:2018-04-14 04/13/2018 LEILA Alonzo Primary Insurance:[facility] LEILA Alonzo Leon[place] [id number] [facility] PLANPolicy [facility] [place] Number: [id number] Hospital [address]Jhs: (185) [id number] Repository [phone] () Date:5205-27-75MC [address] [place] [address]XD: 04/13/2018 Secondary NOT GIVENUNK [place] Insurance:SELF PAY [facility] Number: Effective Repository Date:2018-04-13 04/11/2018 LEILA Alonzo Primary Insurance:[facility] LEILA Alonzo [place] [id number] N [facility] PLANNYU [facility] HospitalB: [facility] Number: [id number] [id number] Repository [address]Ifp: (330) Date:2930-94-02YS [phone] () [address] [place] [address]TT: 04/11/2018 Secondary NOT GIVENUNK [place] Insurance:SELF PAY [facility] Number: Effective Repository Date:2018-04-11 03/16/2018 LEILA Alonzo Primary Insurance:[facility] LEILA Alonzo [place] [id number] [facility] Number: [id number] [id number] Repository [address]Uyb: (330) Date:4803-13-61JG [phone] () [address] [place] [address]TO: 03/16/2018 Secondary NOT GIVENUNK [place] Insurance:SELF PAY [facility] Number: Effective Repository Date:2018-03-09 02/03/2018 LEILA Alonzo Primary LEILA Alonzo [facility]: Insurance[facility] N COMMUNITY PLAPolic [id number] Repository [place] Number: [place], [place] [id number] RDORRPEOPLES HOSPITAL, [place] [address]Kep: (330) Date:2018-02-03Tel: (HP) [id number] [phone] Name:XPO Box (HP)Tel: (000) [address] [place] [address] 000-0000 (WP) [address]MD: 02/02/2018 LEILA Alonzo Primary LEILA MiguelUNC Health SoutheasternB: Insurance:[facility]: [facility] N COMMUNITY PLAPolicy [id number] Repository [place] Number: Cheri [place] [id number] RDORRPEOPLES HOSPITAL, [place] [address]Vnc: (330) Date:2018-02-02Tel: (HP) [id number] [phone] Name:XPO Box ()Tel: (000) [address] [place] [address] 000-0000 (WP) 65[address]PM: 01/05/2018 Leila Justice Primary Insurance:[facility] Leila CondeB: Leonardo Cheri Camposilwendy [facility] PLANM[facility] Hospital [id number] [facility] RdFort [place], [place] Number: Hospital [address]Bsu: [phone]) [id number] Repository [phone] (HP) Date:[id number] [address]QX: 01/05/2018 Secondary NOT GIVENUNK [place] Insurance:SELF PAY [facility] Hospital Number: Effective Repository Date:2018-01-05 11/15/2017 LEILA Alonzo Primary LEILA Roe [facility]ANDAST. [facility]ENTERB: Insurance:[facility]: [facility] N COMMUNITY PLAPolicy [id number] Repository [facility] Number: Cheri [place] [id number] RDORRQASIM, [place] [address]Lxe: (330) Date:2017-11-15 99[address]Sts: (HP) [id number] [phone] Name:XPO Box (HP)Tel: [phone]) [address], [place] [phone] (WP) [address]BA: 11/04/2017 LEILA Cheri [facility] LEILA Cheri [facility]B: Insurance:[facility]: [facility] N [facility] [id number] Repository [facility] Number: Cheri [place], [place] [id number] [place], [place] [address]Wwk: (330) Date:2017-11-04 16149Mup: () [id number] [phone] Name:XPO Box (HP)Tel: [phone]) [address], [place] 000-[address] (WP) [address]IV:
== END ==
PROVIDERS: Visit Provider Obstetrics & Gynecology
DX: N91.2 Amenorrhea, unspecified (principal)
CPT/HCPCS: 36415; 84144; 84702

== ENCOUNTER 2019-02-19 14:39 | Emergency (ER) | payer MEDICAID, SELFPAY ==
[2019-02-19 14:41] VITALS: BP 131/86; PULSE 93; RESP 18; TEMP 36.7; O2SAT 97; BMI 33.3
--- NOTE | 2019-02-19 15:36 | CT_ITS ---
STUDY: CT ABDOMEN AND PELVIS WITHOUT CONTRAST REASON FOR EXAM: Female, 28 years old. Nausea vomiting, right flank pain, right lower quadrant pain RADIATION DOSAGE (If Supplied By Facility): CTDIvol = ( 10.07 ) mGy, DLP = ( 528.55 ) mGycm TECHNIQUE: Transaxial images were obtained from the dome of the diaphragm to the symphysis pubis without oral contrast, and without intravenous contrast. Sagittal and coronal images were reconstructed. Individualized dose optimization techniques were used for this CT. COMPARISON: CT abdomen and pelvis 01/30/2017 FINDINGS: This is a limited non-IV nonoral contrast study. The visualized lung bases are unremarkable. The visualized portions of the heart are within normal limits. Normal liver. Normal gallbladder and extrahepatic biliary system. Normal spleen. Normal pancreas. Normal bilateral adrenal glands. The previously described right renal calculi are not visualized on this study. There is no hydronephrosis or ureteral calculi. Normal left kidney. Normal visualized stomach. Normal small intestine. There is a moderate colonic fecal load. The appendix is visualized and appears normal. Normal abdominal aorta. Normal inferior vena cava. Normal retroperitoneum. Normal urinary bladder. Normal abdominal wall. Normal osseous structures. There is a periumbilical hernia. CT/Abdomen/Pelvis without Cont IMPRESSION: Limited non-IV nonoral contrast study The previously described right renal calculi are not visualized on this study. There is no hydronephrosis or ureteral calculi. Moderate colonic fecal load Electronically Signed: Yaw Nava, at 17:23 EDT Tel , Service support ,
[2019-02-19] MEDS: 0.9% Normal Saline 1,000 ML 125 ML IV (15:51)
[2019-02-19] MEDS: Metoclopramide 10 MG/2 ML Vial IV (15:51)
[2019-02-19 16:00] VITALS: PULSE 112; RESP 34; O2SAT 100
--- NOTE | 2019-02-19 16:01 | ED.RN ---
after Reglan IV given, pt ambulated with steady gait to restroom for urine sample. Pt returned to room, crying and very anxious. Pt states she wants to go home, pacing around room. Emotional support given to pt and mother, education given on possible side effect to medication. Dr Mancini notified. IV benadryl ordered. Pt assisted back into bed. Cold rag given, emotional support continued. IV Benadryl given, pt noted to be calming down. RN remains at bedside.
[2019-02-19 16:08] LABS: Absolute Lymphocyte Count 4.44 X10^3/ul (0.83-4.51); Absolute Neutrophil Count 4.1 X10^3/uL (2.0-7.7); Basophil# 0.03 X10^3/uL; Basophil% 0.3 % (0-1); Eosinophil# 0.58 X10^3/uL; Eosinophils% 5.7 % (0-5); Hematocrit 44.8 % (37-47); Hemoglobin 15.2 g/dl (12.0-15.0); Lymphocyte # 4.44 X10^3/ul (4.0); Lymphocyte % 43.4 % (19-41); Mean Corp Hgb Conc 33.9 g/gl (32-36); Mean Corpuscular Hgb 30.8 pg (27.0-32.0); Mean Corpuscular Volume 90.7 fL (81-99); Mean Platelet Vol. 10.8 fl (6.2-12.0); Monocyte# 1.04 X10^3/uL; Monocyte% 10.2 % (0-10); Neutrophil # 4.14 X10^3/uL (2.7-7.7); Neutrophil % 40.3 % (47-70); Platelet Count 313 K/mm3 (150-450); RBC Distribution Width CV 12.8 % (11.6-14.6); RBC Distribution Width SD 42.2 fl (35.1-43.9); Red Blood Count 4.94 M/mm3 (4.2-5.4); White Blood Count 10.2 K/mm3 (4.4-11.0)
[2019-02-19] MEDS: DiphenhydrAMINE 50 MG/ML Syringe IV (16:09)
[2019-02-19 16:15] VITALS: BP 114/80; PULSE 73; RESP 18; O2SAT 98
[2019-02-19 16:15] LABS: POSITIVE COUNT NO; POSITIVE DIFFERENTIAL NO; POSITIVE MORPHOLOGY NO
[2019-02-19 16:26] LABS: AST(SGOT) 13 U/L (15-37); Alanine Aminotransfer ALT/SGPT 27 U/L (13-56); Albumin, Serum 4.1 g/dL (3.2-5.0); Alkaline Phosphatase 97 U/L (45-117); Anion Gap 4 (5-15); BUN 6 mg/dL (7-18); BUN/Creat Ratio 8.1 RATIO (10-20); Bilirubin, Direct < 0.05 mg/dL (0.00-0.30); Calcium,Total 8.7 mg/dL (8.5-10.1); Chloride 109 mmol/L (98-107); Creatinine, Serum 0.74 mg/dL (0.55-1.02); EST Glomerular Filtration Rate 99 mL/min (>60); Est Glom Filt Rate - Afr Amer 120 mL/min (>60); Estimated Creatinine Clearance 86.17 ml/min; Globulin 3.6 g/dL (2.2-4.2); Glucose 84 mg/dL (74-106); Lipase 172 U/L (73-393); Potassium 3.8 mmol/L (3.5-5.1); Protein, Total 7.7 g/dL (6.4-8.2); Sodium Level 140 mmol/L (136-145)
[2019-02-19 16:37] LABS: Bacteria 0 SEEN /hpf (None Seen); Mucous, Urine 0 SEEN /hpf (<or=2+); Red Blood Cells-Urine 0 SEEN /hpf (0-5); White Blood Cells 0 SEEN /hpf (0-5)
[2019-02-19 16:40] LABS: Color, Urine Yellow (Yellow); Glucose, Dipstick Normal (Normal); Ketone-Dipstick Negative (Negative); Leukocyte Esterase-Dipstick Negative /ul (Negative); Nitrite-Dipstick Negative (Negative); Occult Blood-Urine Negative /ul (Negative); Protein-Dipstick Negative (Negative); Specific Gravity, Urine 1.015 (1.002-1.030); Urine Bilirubin Dipstick Negative (Negative); Urine Clarity Cloudy (Clear); Urine Urobilinogen Normal (Normal)
--- NOTE | 2019-02-19 16:40 | ED.DCSUM_ITS ---
- ER Visit Summary Date of Service: 02/19/19 Chief Complaint: Abdominal pain History of Present Illness: The patient is a 28 F just emergency department with 2 days of intermittent right sided burning flank pain. She also notes vomiting and diarrhea. Last had diarrhea today around 1100 hrs. last vomited last night. She states that today the pain is constant. She has a pain in her back with walking but does not make the abdominal burning pain worse. She takes Vyvanse BuSpar and metformin. History of depression PCOS. Prior abdominal surgeries include endometriosis. She notes urinary pressure but no dysuria hematuria or frequency. Physical Examination: Afebrile vital signs are stable Gen: Well-nourished well-developed Head: Normocephalic atraumatic Eyes: Perrl EOMI ENT: TMs clear no rhinorrhea moist mucous membranes Neck: Supple no lymphadenopathy no JVD nontender CVS: Regular rate rhythm no murmurs normal S1-S2 Respiratory: No distress clear to auscultation bilaterally chest nontender Abdomen: Soft tenderness to palpation in the right side of her abdomen to the up per quadrant without guarding or rebound but out of proportion to the exam nondistended normal bowel sounds no masses Back: Nontender Extremity: Nontender no edema Skin: Normal color no rash (specifically no vesicular rash of the right flank) Neuro: alert orientated ?3 CN II-XII intact normal strength sensation Psych: Tearful Test Results: White blood cell count is normal. Creatinine normal. Liver enzymes normal lipase 172. Urinalysis was negative. Lactic acid negative. CT and pelvis did not demonstrate any acute pathology to explain patient's pain. Emergency Department Course and Treatment: IV fluids and Reglan. She was noted to possibly be having a reaction to the Reglan (akathisia) and received Benadryl. Point based upon the work-up and the physical exam think that the patient most likely has a gastroenteritis. I will write for some Zofran to have at home. Scar is the right flank pain is burning I suspect the prep she could have a small muscle tear in her oblique musculature. Is worse with movement and with touch. I do not see any hematoma in the musculature or any inflammatory changes to explain why it would hurt so bad other than that. Follow-up with primary care return if worsening or concerns Impression: 1. Acute gastroenteritis 2. Acute abdominal muscle strain This note was generated with Dragon dictation software. It may contain incorrect words, spelling, and punctuation that were not noted in review of the chart prior to signing ED Disposition - Plan for ED Patient: Disposition: Home or Assisted Living Instructions: GASTROENTERITIS, Viral (7y-Adult), MUSCLE STRAIN, Abdomen Prescriptions: Ondansetron [Zofran Odt] 4 mg PO Q6H PRN PRN #14 tab PRN Reason: Nausea Prescription Printed Referrals: Yaw Daniels DO [Primary Care Provider] - 1 Week if not improving
[2019-02-19 16:43] LABS: Internal QC Validated? YES +Cl - CLEAR BKGD; Pregnancy, Urine Negative Negative
[2019-02-19 16:48] LABS: Amorphous Sediment 2+ PHOS; Squamous Epithelial Cells - UA 0-5 SEEN /hpf (5-10)
[2019-02-19 18:17] VITALS: BP 117/84; PULSE 75; RESP 18; O2SAT 95
== END 2019-02-19 18:17 | disposition home or self-care (01) ==
PROVIDERS: Emergency Provider Emergency Medicine; Family Provider Preventive Medicine Occupational Medicine; PCP Preventive Medicine Occupational Medicine
DX: K52.9 Noninfective gastroenteritis and colitis, unspecified (principal); S39.011A Strain of muscle, fascia and tendon of abdomen, initial encounter; X58.XXXA Exposure to other specified factors, initial encounter; Y93.9 Activity, unspecified; Y92.9 Unspecified place or not applicable; F32.9 Major depressive disorder, single episode, unspecified; E28.2 Polycystic ovarian syndrome; E66.9 Obesity, unspecified; Z68.33 Body mass index [BMI] 33.0-33.9, adult; Z79.899 Other long term (current) drug therapy
CPT/HCPCS: 74176; 80048; 80076; 81001; 81025; 83690; 85025; 96361; 96374; 96375; 99283; J7030; A4216

== ENCOUNTER → 2019-07-14 10:26 | Outpatient (CLI) | payer MEDICAID, SELFPAY ==
[2019-07-14 13:45] LABS: hCG Titer Quant., Serum 21 mIU/mL (1-3)
== END ==
PROVIDERS: Family Provider Preventive Medicine Occupational Medicine; PCP Preventive Medicine Occupational Medicine; Referring Provider Obstetrics & Gynecology; Visit Provider Obstetrics & Gynecology
DX: N91.2 Amenorrhea, unspecified (principal)
CPT/HCPCS: 36415; 84702

== ENCOUNTER → 2019-07-20 10:46 | Outpatient (CLI) | payer MEDICAID, SELFPAY ==
[2019-07-26 12:45] LABS: HPV Reflexed? NOT INDICATED
== END ==
PROVIDERS: Family Provider Preventive Medicine Occupational Medicine; PCP Preventive Medicine Occupational Medicine; Visit Provider Obstetrics & Gynecology
DX: Z12.4 Encounter for screening for malignant neoplasm of cervix (principal)
CPT/HCPCS: 88175; G0145

== ENCOUNTER → 2019-09-08 13:27 | Outpatient (CLI) | payer MEDICAID, SELFPAY ==
[2019-09-08 16:09] LABS: hCG Titer Quant., Serum < 1 mIU/mL (1-3)
[2019-09-15 09:33] LABS: HPV APTIMA, High Risk Positive (Negative)
[2019-09-15 09:34] LABS: HPV Reflexed? YES, CHARGE PATIENT
== END ==
PROVIDERS: Visit Provider Obstetrics & Gynecology
DX: Z12.4 Encounter for screening for malignant neoplasm of cervix (principal); N92.6 Irregular menstruation, unspecified
CPT/HCPCS: 36415; 84702; 87624; 88175; G0145

== ENCOUNTER → 2019-10-10 15:33 | Outpatient (CLI) | payer MEDICAID, SELFPAY ==
--- NOTE | 2019-10-10 | IMM_PTH ---
PATIENT: LEILA DANIELS LOC: [facility] U#:[id number] AGE/SX: 34/F ROOM: RE10/10/[address]: Dr. Cathy Puente MD : 1990 BED: DIS: SPEC #: [id number] RECD: 10/12/19 12:22 STATUS: RANGEL RELeslie #: [id number] VIKRAM: 10/10/19 00:[address]: Cathy Arredondo DEPT: IMMUNOHISTOCHEMISTRY RECD BY: Laura Blanca Tissues: A - Uterine cervix, NOS B - Endocervical Procedures: p16 (initial) KI-67 (add) PHYSICIAN & [place] [address] SPECIMEN INFORMATION: Tissue Source: A - Cervix at 4 o'clock, B - ECC Clinical Info: ASCUS, positive HR/HPV, mild dysplasia Specimen Number: [id number] A & B CPT code: 76254 x2, 46849 x2 METHODOLOGY: Deparaffinized sections of prefer/formalin-fixed tissue or PAP/DQ stained slides are incubated with monoclonal/polyclonal antibodies/oligonucleotide probes. Localization is made via biotin free immunoperoxidase method. Appropriate controls are performed and reacted as expected. Results on target cell population are indicated in the following table: RESULTS: ANTIBODY / CLONE RESULT Block A P16 (E6H4) negative Ki-67 (30-9) negative Block B P16 (E6H4) negative Ki-67 (30-9) negative These tests were developed and their performance characteristics determined by [facility]. They may not have been cleared or approved by the U.S. Food and Drug Administration. The FDA has determined that such clearance or approval is not necessary. The above immunohistochemical/dualISH markers are ordered and reviewed by the Pathologist. INTERPRETATION: A. Cervix at 4 o'clock, biopsy: Focal HPV change suspected. B. Endocervical curettage: No evidence of dysplasia. AM:deisy 10/13/19
--- NOTE | 2019-10-10 14:45 | CER_PTH ---
PATIENT: LEILA DANIELS [id number] AGE/SX: 34/F ROOM: RE10/10/[address]: Dr. Cathy Puente MD : 1990 BED: DIS: SPEC #: [id number] RECD: 10/10/19 15:53 STATUS: RANGEL RACHELLE #: [id number] VIKRAM: 10/10/19 14:[address]: Cathy Arredondo DEPT: SURGICAL PATHOLOGY RECD BY: Gerry Douglas Tissues: A - Uterine cervix, NOS B - Uterine cervix, NOS Procedures: Surgery Specimen Level IV HEADER OPERATION: Colposcopy PRE-OP DIAGNOSIS: LMP 09/19/19; ASCUS, positive HR/HPV; mild dysplasia TISSUE SUBMITTED: A - Cervical at 4 o'clock, B - ECC MICROSCOPIC DIAGNOSIS A. Cervix at 4 o'clock, biopsy: Focal HPV change suspected. See comment. B. Endocervix, curettings: Strips of benign superficial endocervix. Benign squamous epithelial cells. Fragments of lower uterine endometrium with secretory change. No evidence of dysplasia. See comment. AM:deisy 10/12/19 COMMENT A & B. Results from immunohistochemistry ([id number]) for surrogate HPV marker (p16) will be reported separately. MICROSCOPIC DESCRIPTION Slides are reviewed. GROSS DESCRIPTION A - Received in fixative is one container labeled with the patient's name and designated cervical biopsy at 4 o'clock. The specimen consists of one irregular fragment of light diaz soft tissue that measures 0.4 x 0.3 x 0.1 cm. The specimen is totally submitted in one cassette. B - Received in fixative is one container labeled with the patient's name and designated ECC. The specimen consists of multiple irregular fragments of diaz mucoid tissue that in aggregate measure 2.5 x 1.5 x 0.2 cm. The specimen is totally submitted in one cassette. / SJ:deisy 10/11/19 TC: CPT: 25593 x2
== END ==
PROVIDERS: Referring Provider Obstetrics & Gynecology; Visit Provider Obstetrics & Gynecology
DX: Q24.9 Congenital malformation of heart, unspecified (principal)
CPT/HCPCS: 88305; 88341; 88342

== ENCOUNTER → 2020-04-05 16:37 | Outpatient (CLI) | payer MEDICAID, SELFPAY ==
[2020-04-11 17:50] LABS: HPV Reflexed? NOT INDICATED
== END ==
PROVIDERS: Visit Provider Obstetrics & Gynecology
DX: R87.612 Low grade squamous intraepithelial lesion on cytologic smear of cervix (LGSIL) (principal)
CPT/HCPCS: 88175; G0145

== ENCOUNTER → 2020-05-30 09:19 | Outpatient (CLI) | payer MEDICAID, SELFPAY ==
[2020-05-30 11:22] LABS: Progesterone Level 30.14 ng/mL (See Comment)
[2020-06-25 16:31] LABS: Progesterone Level 1.63 ng/mL (See Comment)
== END ==
LOC: LAB.FUTURE 09:19 → WOBLAB 06-25 13:45
PROVIDERS: Visit Provider Obstetrics & Gynecology
DX: N97.0 Female infertility associated with anovulation (principal); E28.8 Other ovarian dysfunction
CPT/HCPCS: 36415; 84144

== ENCOUNTER → 2020-07-31 15:12 | Outpatient (CLI) | payer MEDICAID, SELFPAY ==
[2020-07-31 17:09] LABS: Color, Urine Yellow (Yellow); Glucose, Dipstick Normal (Normal); Ketone-Dipstick Negative (Negative); Leukocyte Esterase-Dipstick Negative /ul (Negative); Nitrite-Dipstick Negative (Negative); Occult Blood-Urine Negative /ul (Negative); Protein-Dipstick Negative (Negative); Specific Gravity, Urine 1.015 (1.002-1.030); Urine Bilirubin Dipstick Negative (Negative); Urine Clarity Clear (Clear); Urine Urobilinogen Normal (Normal); Urine pH 6.5 (5.0 - 8.0)
[2020-07-31 17:22] LABS: Amphetamine Urine VISTA NEGATIVE (<1000 ng/mL); Barbiturate Urine VISTA NEGATIVE (< 200 ng/mL); Benzodiazepine Urine VISTA NEGATIVE (< 200 ng/mL); Cocaine Urine VISTA NEGATIVE (< 300 ng/mL); Ecstacy Urine VISTA NEGATIVE (< 500 ng/mL); Methadone Urine VISTA NEGATIVE (< 300 ng/mL); PCP Urine VISTA NEGATIVE (< 25 ng/mL); THC Urine VISTA POSITIVE (< 50 ng/mL); Vista UDS pH Range 6
[2020-07-31 17:25] LABS: Absolute Lymphocyte Count 3.17 X10^3/uL (0.83-4.51); Absolute Neutrophil Count 8.6 X10^3/uL (2.0-7.7); Basophil# 0.04 X10^3/uL; Basophil% 0.3 % (0-1); Eosinophil# 0.14 X10^3/uL; Eosinophils% 1.1 % (0-5); Hematocrit 40.6 % (37-47); Hemoglobin 13.9 g/dL (12.0-15.0); Lymphocyte # 3.17 X10^3/ul (4.0); Lymphocyte % 24.8 % (19-41); Mean Corp Hgb Conc 34.2 g/dL (32-36); Mean Corpuscular Hgb 30.8 pg (27.0-32.0); Mean Corpuscular Volume 89.8 fL (81-99); Mean Platelet Vol. 10.4 fl (6.2-12.0); Monocyte# 0.85 X10^3/uL; Monocyte% 6.6 % (0-10); NRBC Flagged by Analyzer 0 % (0-5); Neutrophil # 8.55 X10^3/uL (2.7-7.7); Neutrophil % 66.8 % (47-70); Platelet Count 362 K/mm3 (150-450); RBC Distribution Width CV 12.5 % (11.6-14.6); RBC Distribution Width SD 41.6 fl (35.1-43.9); Red Blood Count 4.52 M/mm3 (4.2-5.4); White Blood Count 12.8 K/mm3 (4.4-11.0)
[2020-07-31 17:43] LABS: Thyroid Stim Hormone (TSH) 1.51 uIU/mL (0.358-3.74)
[2020-07-31 18:26] LABS: Hemoglobin A1c 4.8 % (3.8-5.6)
[2020-08-01 02:17] LABS: Prenatal RPR NONREACTIVE (NONREACTIVE)
[2020-08-01 09:08] LABS: HIV - WCH Non-Reactive (Nonreactive); Hepatitis B Surface Antigen Non-Reactive (Nonreactive); Hepatitis C Antibody Non-Reactive (Nonreactive); Rubella IgG Reactive (Nonreactive)
[2020-08-03 03:07] LABS: Chlamydia By Nucleic Acid AMP Negative (Negative)
[2020-08-05 04:27] LABS: Gonococcus By Nucleic Acid AMP Negative (Negative)
== END ==
PROVIDERS: Visit Provider Obstetrics & Gynecology
DX: Z32.01 Encounter for pregnancy test, result positive (principal)
CPT/HCPCS: 36415; 80307; 81002; 82306; 83036; 84443; 85025; 86703; 86762; 86803; 87340; 87491; 87591

== ENCOUNTER → 2020-08-27 14:01 | Outpatient (CLI) | payer MEDICAID, SELFPAY ==
[2020-08-27 17:57] LABS: Glucose Challenge Gest 1H 50g 131 mg/dL (70-140)
[2020-09-03 13:22] LABS: CF, Screen Comment: (.)
== END ==
PROVIDERS: Visit Provider Obstetrics & Gynecology
DX: Z34.81 Encounter for supervision of other normal pregnancy, first trimester (principal)
CPT/HCPCS: 36415; 81220; 82950

== ENCOUNTER → 2020-11-26 15:04 | Outpatient (CLI) | payer MEDICAID, SELFPAY ==
[2020-11-26 16:46] LABS: Hematocrit 35.1 % (37-47); Hemoglobin 11.9 g/dL (12.0-15.0); Mean Corp Hgb Conc 33.9 g/dL (32-36); Mean Corpuscular Hgb 31.6 pg (27.0-32.0); Mean Corpuscular Volume 93.4 fL (81-99); Mean Platelet Vol. 10.9 fl (6.2-12.0); Platelet Count 321 K/mm3 (150-450); RBC Distribution Width CV 13.2 % (11.6-14.6); RBC Distribution Width SD 45.1 fl (35.1-43.9); Red Blood Count 3.76 M/mm3 (4.2-5.4); White Blood Count 14.6 K/mm3 (4.4-11.0)
[2020-11-26 16:59] LABS: Glucose Challenge Gest 1H 50g 141 mg/dL (70-140)
== END ==
PROVIDERS: Visit Provider Obstetrics & Gynecology
DX: Z34.82 Encounter for supervision of other normal pregnancy, second trimester (principal)
CPT/HCPCS: 36415; 82950; 85027

== ENCOUNTER → 2020-12-02 09:44 | Outpatient (CLI) | payer MEDICAID, SELFPAY ==
[2020-12-02 10:57] LABS: Glucose GTT-Gestation. Fasting 79 mg/dL (<105)
[2020-12-02 11:53] LABS: Glucose GTT-Gestational 1 Hr 133 mg/dL (<190)
[2020-12-02 13:57] LABS: Glucose GTT-Gestational 2 Hr 146 mg/dL (<165)
[2020-12-02 13:59] LABS: Glucose GTT-Gestational 3 Hr 118 L (<145)
== END ==
PROVIDERS: PCP Preventive Medicine Occupational Medicine; Referring Provider Obstetrics & Gynecology; Visit Provider Obstetrics & Gynecology
DX: O24.912 Unspecified diabetes mellitus in pregnancy, second trimester (principal); Z3A.00 Weeks of gestation of pregnancy not specified
CPT/HCPCS: 36415; 82951; 82952

== ENCOUNTER → 2021-02-12 16:31 | Outpatient (CLI) | payer MEDICAID, SELFPAY | PROVIDERS: PCP Preventive Medicine Occupational Medicine; Visit Provider Obstetrics & Gynecology | DX: Z36.85 Encounter for antenatal screening for Streptococcus B (principal) | CPT/HCPCS: 87081 ==

== ENCOUNTER → 2021-02-26 15:31 | Outpatient (CLI) | payer MEDICAID, SELFPAY ==
[2021-02-26 16:23] LABS: Hematocrit 33.3 % (37-47); Hemoglobin 11.3 g/dL (12.0-15.0); Mean Corp Hgb Conc 33.9 g/dL (32-36); Mean Corpuscular Hgb 30.6 pg (27.0-32.0); Mean Corpuscular Volume 90.2 fL (81-99); Mean Platelet Vol. 11.1 fl (6.2-12.0); Platelet Count 241 K/mm3 (150-450); RBC Distribution Width CV 12.7 % (11.6-14.6); RBC Distribution Width SD 41.3 fl (35.1-43.9); Red Blood Count 3.69 M/mm3 (4.2-5.4); White Blood Count 10.5 K/mm3 (4.4-11.0)
[2021-02-26 16:51] LABS: ALB/GLOB Ratio 0.7 RATIO (0.9-2.4); AST(SGOT) 10 U/L (15-37); Alanine Aminotransfer ALT/SGPT 12 U/L (13-56); Albumin, Serum 2.7 g/dL (3.2-5.0); Alkaline Phosphatase 132 U/L (45-117); Anion Gap 8 (5-15); BUN 6 mg/dL (7-18); BUN/Creat Ratio 9.1 RATIO (10-20); Calcium,Total 8.1 mg/dL (8.5-10.1); Chloride 109 mmol/L (98-107); Creatinine, Serum 0.66 mg/dL (0.55-1.02); EST Glomerular Filtration Rate 113 mL/min (>60); Est Glom Filt Rate - Afr Amer 137 mL/min (>60); Glucose 174 mg/dL (74-106); Protein, Total 6.7 g/dL (6.4-8.2); Sodium Level 138 mmol/L (136-145); Uric Acid 3.4 mg/dL (2.6-6.0)
== END ==
PROVIDERS: PCP Preventive Medicine Occupational Medicine; Visit Provider Obstetrics & Gynecology
DX: Z34.83 Encounter for supervision of other normal pregnancy, third trimester (principal)
CPT/HCPCS: 36415; 80053; 84550; 85027

== ENCOUNTER → 2021-02-27 15:53 | Outpatient (CLI) | payer MEDICAID, SELFPAY ==
[2021-02-27 17:35] LABS: 24HR. UA Prot. Total Volume 2450 mL
[2021-02-27 17:41] LABS: 24 Hour Urine Protein 269.5 mg/24HR (<150 MG/24HR)
== END ==
PROVIDERS: PCP Preventive Medicine Occupational Medicine; Referring Provider Obstetrics & Gynecology; Visit Provider Obstetrics & Gynecology
DX: Z34.83 Encounter for supervision of other normal pregnancy, third trimester (principal)
CPT/HCPCS: 81050; 84156

== ENCOUNTER 2021-03-12 06:55 | Inpatient (IN) | payer MEDICAID, SELFPAY ==
[2021-03-12] VITALS (45 sets, daily range): BP systolic 116–174; BP diastolic 58–100; PULSE 68–89; TEMP 36–37; O2SAT 83–100; BMI 39.4
[2021-03-12] MEDS: Lactated Ringers 1,000 ML 50 ML IV (07:30)
[2021-03-12 07:43] LABS: Absolute Lymphocyte Count 1.84 X10^3/uL (0.83-4.51); Absolute Neutrophil Count 7.7 X10^3/uL (2.0-7.7); Basophil# 0.03 X10^3/uL; Basophil% 0.3 % (0-1); Eosinophil# 0.13 X10^3/uL; Eosinophils% 1.3 % (0-5); Hemoglobin 11.6 g/dL (12.0-15.0); Lymphocyte # 1.84 X10^3/ul (0.83-4.51); Lymphocyte % 17.9 % (19-41); Mean Corp Hgb Conc 34.1 g/dL (32-36); Mean Corpuscular Hgb 30.5 pg (27.0-32.0); Mean Corpuscular Volume 89.5 fL (81-99); Mean Platelet Vol. 10.8 fl (6.2-12.0); Monocyte# 0.58 X10^3/uL; Monocyte% 5.6 % (0-10); NRBC Flagged by Analyzer 0 % (0-5); Neutrophil # 7.65 X10^3/uL (2.7-7.7); Neutrophil % 74.4 % (47-70); Platelet Count 222 K/mm3 (150-450); RBC Distribution Width CV 13.2 % (11.6-14.6); White Blood Count 10.3 K/mm3 (4.4-11.0)
[2021-03-12] MEDS: miSOPROStol 25 MCG TABLET VAGINAL (08:33)
--- NOTE | 2021-03-12 09:00 | PCM.HP.OB ---
HPI - General General Date of Admission: 03/12/21 HPI Narrative LEA DANIELS, is a 30 F @ 40 weeks gestation presents for IOL for persistent decreased movement. [facility] Medical History (Updated 03/13/21 @ 07:[address] Cathy Puente MD) Bipolar 1 disorder Endometriosis PCOS (polycystic ovarian syndrome) Home Medications lamotrigine 200 mg PO BID 03/12/21 [History Last Taken 03/12/21] vit 60-iron fum-folic [PNV Folic Acid + Iron] 1 tab PO DAILY 03/12/21 [History Last Taken 03/10/21] Allergy/AdvReac Type Severity Reaction Status Date / Time hydrocodone Allergy Swelling Verified 02/19/19 14:40 ketorolac tromethamine Allergy Shortness Verified 02/19/19 14:40 [From Toradol] of breath meloxicam [From Mobic] Allergy Rash Verified 02/19/19 14:40 strawberry Allergy Hives Verified 02/19/19 14:40 tramadol Allergy Rash Verified 02/19/19 14:40 Social History Smoking Status: Former smoker History Elective abortions Hx Para 0 Spontaneous abortions Hx # Term Pregnancies Ectopic pregnancies Hx # Pregnancies Multiple births # of living children Addt'l History: ACOG ANTEPARTUM RECORD - HISTORY AND PHYSICAL (03/13/2021) Name: LEA DANIELS History of this : This is a 30 year old [id number] presents at 40 wks + 1 days gestation. OB Physician: Cathy Puente MD 's Physician: UNDECIDED ...................................................................... : 1990 Age: 30 [address]: [address] [place] [id number] Phone: H) [phone] Insurance Carrier: [facility] PLAN [id number] Emergency Contact: WILLIAM ROUSE [phone] ...................................................................... Final MARLIN: 03/12/21 By Ultrasound: 11 weeks 6 days PARITY: (G-Total Pregnancies P-Fullterm,Premature,Induced AB,Spont AB, Ectopics, Multiple,Living) MARLIN CONFIRMATION: By LMP: 06/05/20 Initial Exam: 03/12/21 By First Ultrasound Exam: 03/12/21 Final MARLIN: 03/12/21 OB PROBLEM LIST: ALLERGIC to Tramadol. And something starting w R. Pt will find out this drug given in ER. +THC Draw glucose for glucola at initial OB visit. Had Tdap 12/2020 hx infertility PCOS Wants carrier and genetic screening Both are negative! ALLERGIES: Tramadol Difficulty breathing MEDICATIONS: Lamictal 200 mg tablet bid Lomotil 2.5 mg-0.025 mg tablet once or twice a day, as needed Maxalt 10 mg tablet As Directed metformin 850 mg tablet 1 PO BID 19 29 mg iron-1 mg chewable tablet 1 tab PO daily Prometrium 200 mg capsule Take one capsule PO each evening until twelve weeks gestation SOCIAL HISTORY: Smoking - Used to smoke. Quit 2y ago. Vaped x 1 year. Quit prior to pg. Alcohol Use - denies drinking Diet - balanced Diet, caffeine < 2 drinks per day and Water tries for 1 gal qd. Lifestyle - moderate stress lifestyle Exercise - Active at work. 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 Denies street drug use... Sexual Activity - single sexual partner Residence - lives with Place of - [place] Hours Worked - 20 WK Spouse-Sig Other Name - Mynor Spouse-Sig Other Occupation - [employer] Spouse-Sig Other Phone No - [phone] PRIOR DELIVERY HISTORY DEL DATE GEST LAB WT LB WT OZ TYPE ANES LABOR TX 01 Nov 19 4 0 0 0 Sab None No ANTEPARTUM FLOW CHART VISIT GE RTC FU F F AR U U DATE WK MD WKS HT PN HR M SS BP ED WT AR GL D EF ST __ ____ ___ __ __ ___ __ __ __ ___ __ __ __ ___ __ 12 Feb 39 SHM 1 39 V + de 120/78 2+ 209 tr - 0 50 h 09 Feb 39 SHM 1 39 V + de 116/74 sl 208 0 l h 08 Feb 39 SHM 1 38 V + + 138/84 0 207 tr - 0 l h 02 Feb 38 SHM 1 38 V + + 132/78 sl 206 - - 30 Jan 38 SHM 1 38 V + + 156/96 sl 208 ne ne Jan 36 SHM 1 36 V + + 134/84 sl 207 - - 16 Romel 36 SHM 1 36 V + + 122/80 0 202 tr - 0 l h 09 Jan 35 SHM 1 34 v + + 130/74 sl 204 - - December SHM 2 32 V + + 138/74 sl 200 tr ne January 27 SHM 2 31 V + + 120/80 sl 198 tr - 27 Apr 28 JM 2 28 - + + 134/82 sl 198 tr - 30 Mar 24 JM 4 24 - + + 110/72 sl 193 - 2+ 01 Mar 20 CM 4 24 + + 126/70 0 187 tr ne Sep 13 SHM 4 + ? 122/80 0 180 - - Aug 09 SHM 4 on US 130/80 0 170 - - ANTEPARTUM NOTE(S): Mar 10 2021: see note Mar 07 2021: Mar 06 2021: uncomfortable Feb 28 2021: Feb 26 2021: retake lying on left 142/72 Feb 18 2021: doing well Feb 12 2021: GBS today Feb 05 2021: Uncomfortable Jan 21 2021: Jan 08 2021: nausea, occ emesis Dec 24 2020: becoming uncomfortable Nov 26 2020: 1 HR GTT today Oct 28 2020: US today, glucola given to repeat at 24 weeks Sep 24 2020: increased h/a's Aug 27 2020: COMPREHENSIVE ANTEPARTUM NOTE(S): Mar 10 2021: Lea is here for exam. She relates that she would like induction as soon as possible. Miserable and Done! FM is decreased since Wednesday. Still having mvmt it is just less. Increased edema noted. Reviewed this may get worse day 3 after delivery and to call if other sx noted. Will discuss induction further with Dr CARL. NST will be done after exam. LMT NST is reactive today in office wit Mar 10 2021: US confirms CEPHALIC. Home kick counts > 5/h. NST reactive, Cat I. IOL scheduled for 03/12/21. Kick counts again reviewed. Cytotec. Mar 07 2021: Lea is here for a NST for dec FM at 39 w 2 d. She reports that she felt vigorous movement all day yesterday and into the evening, and since then she has noted some dec in FM, but states that it's mostly that the kicks feel different. She states that she thinks the movements are value stream leader. She is familiar with NST/FM. FHR noted immediately when EEFM applied, and FM was heard, but not felt by Sa Mar 07 2021: NST today reactive, Cat I. TOCO 3/10 min, pt reports not feeling them. Pt reports movement decreased, but not absent, noted 4 movements on NST. Offered to schedule versus expectant management given reactive NST. Pt desires expectant management. Reviewed kick counts. Attempted to strip membranes, but exam unchanged. Mar 06 2021: Lea is here for visit. She is uncomfortable, ready for baby to come. B/P slightly elevated today at 138/84. FM, SROM, and labor reviewed. LMT Mar 06 2021: Denies headache, vision changes. Feels well, just uncomfortable. Discussed elective IOL at 39 r/b vs. expectant management r/b. Following discussion, pt plans expectant management. Labor, FM, preeclampsia precautions reviewed. Feb 28 2021: Reviewed preeclamptic labs wnl, no proteinuria. Pt reports home BP also normal. Pt to continue monitoring. Expectant management. Preeclampsia precautiosn reviewed. Feb 28 2021: Lea is here for a NST at 38 w 2 d. NST and EEFM reviewed. She states that she is tired, but feels okay. Good FM reported. She denies spotting/LoF. Lea states that she feels occasional mild cramping/pressure. Slight edema noted below knees. She denies headaches/visual disturbances/epigastric pain, and DTR's are 1+ bilaterally. She states that her B/P's at home have been running 120's/80's. NST Feb 26 2021: Lea is here for PNV. States she is feeing tired and heavy. No ctx noticed. Having good FM. Slight edema noted in ankles. BP elevated 156/96, Retaken lying on left side 142/72. Having no c/o headache or blurred vision. Urine neg/neg. LSS Feb 26 2021: Preeclampsia si/sx reviewed. Labs today. Exam unremarkable, no clonus or hyperreflexia, trace b/l LE DTRs. Feb 18 2021: H taken to OB. tkg Feb 18 2021: Reviewed GBS neg. Labor, FM precautions. Feb 12 2021: Lea is here for visit. She is uncomfortable but nothing that she does not expect at this point. Reviewed FM, SROM, and labor. GBS today with cervix ck. Reviewed may have bloody discharge after exam, mild cramping. LARC consent declined. LMT Feb 12 2021: GBS obtained. Labor, ROM, FM precautions. CEPHALIC on US. Feb 05 2021: Lea is here for visit. Reports feeling more uncomfortable. Reviewed discomforts, dangers. Call if decreased FM. GBS next visit. LMT Jan 21 2021: Lea is here for PNV. Continues feeling uncomfortable. Feet swollen most of the time. Resting with elevation does relieve the edema. Having good FM. Sleeping is difficult. No other concerns voiced. Urine tr/neg. LSS Jan 21 2021: Discussed maternity leave, FMLA - pt plans 12 weeks leave and would like to start early. Recommend re-evaluation at 38-39 weeks gestational age. PTL, ROM, FM precautions. [facility] with Vit K, HBV vaccine and abx eye oint. Encouraged to select [facility] or [facility]. She had Tdap vaccine 2 weeks ago. Recommend compression socks for LE edema. Jan 08 2021: Lea is here for visit. She is feeling more uncomfortable, mild nausea, occ emesis. Takes Tums which do help. She also reports that she has noticed that she occ throws up after having IC. Discussed could add Pepcid. Will likely do Tdap today and partner plans to have one also. Reviewed FM, PTL, PROM. LMT Jan 08 2021: PTL, ROM, FM precautions. Discussed PPBC, pt considering OCP. Epidural planned in labor. Dec 24 2020: Lea is here for visit. She is becoming more uncomfortable and notes pulling sensation when she rolls over but it goes away pretty quickly. Reviewed round ligament pain in . Call if progressive, worsening pain or discomfort. Had to do 3 hr GTT but this was WNL. Reviewed Tdap and will remind her at next visit to have this at [facility] retail pharmacy. LMT Dec 24 2020: 28wk, failed 1hr GTT passed 3hr GTT. JM Nov 26 2020: Lea is here for a PNV with SO. FM present, pt states it is more apparent at night. Sl edema in feet. No concerns expressed at this time. 1 HR GTT drawn today, pt is O+. MK Nov 26 2020: 24wk, 1hr GTT today. JM Oct 28 2020: Lea is here with SO for PNV following US. Very happy and excited about . Having good FM. No edema present at this time but states she sometimes swells at end of day after work. GCT done previously. CM wants repeat GCT at 24 weeks. Glucola given and instruction sheet. Urine tr/neg. No concerns today. LSS Oct 28 2020: 20/5w visit. Anatomy US wnl today. Glucola given for next visit. F/u 4w. cm Sep 24 2020: Lea is here for visit. Relates increased headaches. Taking 500 mg of Tylenol that does take the edge off. Advised can take 1000 mg q 8 hours. Can try increased po fluids, caffeine, antihistamine and let us know if this does not work. LMT Sep 24 2020: Trial magnesium 400mg daily for headache ppx. Headache cocktail for Tylenol ES 1-2 tabs, Benadryl and Caffeine if headache occurs. Reviewed aneuploidy screening 46 XX with neg SMA and CF carrier screening. Pt understands residual risk 1%. Discussed round ligament pain, movement. Anatomy scan at next visit. d/c progesterone. Aug 28 2020: TELEHEALTH NOB. Lea is a 30 yo G 2 P 0 w MARLIN 03-12-21 planning a vag del at [facility] poss w epidural, unsure of post disch ped care and to breastfeed. She works PT at [employer]. Mynor PEREYRA, works at [employer], has 11 yo son from [facility] relationship who lives w them. Lea has an allergy to Tramadol and a med starting w R. She will try to find out the name. She quit smoking 2 y ago, vaped for a Aug 27 2020: Lea is here with SO for 11 w 6 d PNV. Reports she has nausea and vomiting with red meats and runny eggs. She is drinking some milk and eating chicken for her protein. Reports she has chest heaviness when she lays down. She uses 2 pillows at night that helps alleviate the pressure. Medications and allergies reviewed. LJW Aug 27 2020: Discussed aneuploidy screening options- r/b/limitations, plan for cfDNA as well as CF, SMA carrier screening. d/c Metformin in after 13wga. hx PCOS, insulin resistance. 1h GTT today. REVIEW OF SYSTEMS: GENERAL - Denies fever, or chills SKIN - Denies rash, new skin lesions, or change in moles EYES - Denies blurred vision, or change in visual acuity EARS - Denies ear pain, or difficulty hearing NOSE - Denies nasal congestion, discharge, or bleeding MOUTH - Denies sore throat, or difficulty swallowing NECK - Denies pain or swelling RESPIRATORY - Denies shortness of breath, cough, wheezing CARDIOVASCULAR - Denies palpitations, chest pain, orthopnea, PND, peripheral edema, syncope or claudication GASTROINTESTINAL - Denies nausea, vomiting, diarrhea, constipation, Denies abdominal pain, melena and or bright red blood GENITOURINARY - Denies dysuria, frequency of urination, urgency, or hesitancy MUSCULOSKELETAL - Denies joint or muscle pain, or back pain NEUROLOGICAL - Denies localized numbness, weakness, or tingling PSYCHIATRIC - Denies depression, anxiety, substance abuse or suicide attempts ENDOCRINE - Denies heat or cold intolerance, weight loss or gain, increasing thirst HEMATO-IMMUNOLOGIC - Denies easy bruising, bleeding, oral ulcerations or recurrent infections GENETICS SCREENING: Age 35+ years: No Thalassemia: No Neural Tube Defect: No Down Syndrome: No PAUL-SACHS: No Sickle Cell Disease: No Hemophilia: No Musc. Dystrophy: No Cystic Fibrosis: requests screening Ebony Chorea: No Mental Retardation: No Fragile X: No Other genetic: No Other defects: No SABs/still births: Yes x1 Drugs since LMP: Yes INFECTION HISTORY: High risk AIDS: No High risk Hepatitis: No Exposed to TB: No Exposed to Herpes: No Rash/viral illness since LMP: No History of STD: No MENSTRUAL HISTORY: *Menses Amount/Duration: 6 daysMenses Regularity: RegularFrequency: monthlyMenarche (Age Onset): 17* PAST SUMMARY: PARITY: 1. Total Pregnancies............ 2 2. Full Term Pregnancies........ 0 3. Premature.................... 0 4. Abortions - Induced.......... 0 5. Abortions - Spontaneous...... 1 6. Ectopics..................... 0 7. Multiple Births.............. 0 8. Living Children.............. 0 PAST #1: Date of :.................. 06/30/19 Gestation Weeks:................ 4 Length of labor(hours):......... 0 Sex:............................ UNKNOWN Weight-lbs:............... 0 Weight-oz:................ 0 Type of Delivery:............... Sab Type of Anesthesia:............. None Place of Delivery:.............. HOME Treatment of Labor?:.... No Comment: NO Vital Signs Vital Signs Vital Signs: 03/12/21 11:39 03/12/21 14:25 03/12/21 14:26 Temperature 98.6 F 98.0 F Temperature Source Temporal Temporal Pulse Rate 78 82 75 Blood Pressure 133/86 H 174/100 H 149/95 H BP Systolic 133 174 149 BP Diastolic 86 100 95 Pulse Ox 97 99 03/12/21 14:53 03/12/21 16:38 03/12/21 17:04 Temperature 97.8 F Temperature Source Temporal Pulse Rate 74 72 89 Blood Pressure 136/73 H 131/75 H BP Systolic 136 131 BP Diastolic 73 75 Pulse Ox 98 03/12/21 17:06 03/12/21 17:07 03/12/21 18:01 Temperature 97.7 F L Temperature Source Temporal Pulse Rate 80 Blood Pressure 133/85 H BP Systolic 133 BP Diastolic 85 Pulse Ox 83 97 99 03/12/21 19:02 03/12/21 19:03 03/12/21 19:51 Temperature 97.8 F 97.7 F L Temperature Source Temporal Temporal Pulse Rate 76 80 Blood Pressure 129/75 H 128/70 H BP Systolic 129 128 BP Diastolic 75 70 Pulse Ox 98 03/12/21 20:35 03/12/21 20:36 03/12/21 22:06 Temperature 98.1 F Temperature Source Temporal Pulse Rate 75 79 Blood Pressure 127/74 H BP Systolic 127 BP Diastolic 74 Pulse Ox 98 96 99 03/12/21 22:11 03/12/21 22:16 03/12/21 22:17 Temperature 96.8 F L Temperature Source Temporal Pulse Rate 83 77 Blood Pressure 143/87 H 137/84 H BP Systolic 143 137 BP Diastolic 87 84 Pulse Ox 96 98 03/12/21 22:21 03/12/21 22:22 03/12/21 22:26 Temperature Temperature Source Pulse Rate 77 Blood Pressure 145/82 H BP Systolic 145 BP Diastolic 82 Pulse Ox 99 98 03/12/21 22:27 03/12/21 22:31 03/12/21 22:36 Temperature Temperature Source Pulse Rate 78 75 79 Blood Pressure 139/93 H 136/82 H BP Systolic 139 136 BP Diastolic 93 82 Pulse Ox 98 99 03/12/21 22:38 03/12/21 22:41 03/12/21 22:42 Temperature Temperature Source Pulse Rate 75 76 Blood Pressure 135/90 H 140/94 H BP Systolic 135 140 BP Diastolic 90 94 Pulse Ox 100 03/12/21 22:46 03/12/21 22:47 03/12/21 22:51 Temperature Temperature Source Pulse Rate 75 81 Blood Pressure 142/82 H BP Systolic 142 BP Diastolic 82 Pulse Ox 98 98 03/12/21 22:53 03/12/21 22:56 03/12/21 22:57 Temperature 97.1 F L Temperature Source Temporal Pulse Rate 85 81 Blood Pressure 140/95 H 132/72 H BP Systolic 140 132 BP Diastolic 95 72 Pulse Ox 99 03/12/21 23:01 03/12/21 23:06 03/12/21 23:11 Temperature Temperature Source Pulse Rate 78 77 77 Blood Pressure 121/64 H 124/63 H 118/61 BP Systolic 121 124 118 BP Diastolic 64 63 61 Pulse Ox 99 99 98 03/12/21 23:16 03/12/21 23:17 03/12/21 23:21 Temperature Temperature Source Pulse Rate 76 72 71 Blood Pressure 119/61 BP Systolic 119 BP Diastolic 61 Pulse Ox 99 98 03/12/21 23:22 03/12/21 23:26 03/12/21 23:27 Temperature Temperature Source Pulse Rate 70 68 Blood Pressure 116/58 L 118/70 BP Systolic 116 118 BP Diastolic 58 70 Pulse Ox 100 03/12/21 23:31 03/12/21 23:49 03/13/21 00:39 Temperature 97.2 F L 98.1 F Temperature Source Temporal Temporal Pulse Rate 76 73 72 Blood Pressure 132/68 H 126/73 H 112/64 BP Systolic 132 126 112 BP Diastolic 68 73 64 Pulse Ox 99 100 97 03/13/21 01:58 03/13/21 03:13 03/13/21 03:14 Temperature 99.0 F 97.9 F Temperature Source Temporal Temporal Pulse Rate 74 72 Blood Pressure 123/56 H 107/60 BP Systolic 123 107 BP Diastolic 56 60 Pulse Ox 99 100 100 03/13/21 04:17 03/13/21 04:45 03/13/21 05:29 Temperature 98.1 F 97.1 F L 97.1 F L Temperature Source Temporal Temporal Temporal Pulse Rate 75 76 75 Blood Pressure 111/57 L 112/64 107/69 BP Systolic 111 112 107 BP Diastolic 57 64 69 Pulse Ox 96 99 100 03/13/21 06:16 03/13/21 07:26 Temperature 97.1 F L Temperature Source Temporal Pulse Rate 82 77 Blood Pressure 108/60 129/65 H BP Systolic 108 129 BP Diastolic 60 65 Pulse Ox 99 100 Weight Weight: 94.6 kg Body Mass Index (BMI) 39.4 Physical Exam Const alert, oriented x3 and no apparent distress HEENT normocephalic Resp normal respiratory effort, normal air movement and clear to auscultation bilaterally Cardio regular rate and regular rhythm GI normal to inspection, nondistended, normoactive bowel sounds, soft to palpation, non-tender and non-distended Inspection: gravid OB / External & Speculum: other /-3. firm and posterior Labs Labs Labs: Blood Type O POSITIVE Antibody Screen NEGATIVE Hct 34.0 % (37-47) L Hgb 11.6 g/dL (12.0-15.0) L Rubella IgG Antibody Reactive (Nonreactive) Hep Bs Antigen Non-Reactive (Nonreactive) Neisseria gonorrhoeae DNA (ABRIL) Negative (Negative) HIV 1&2 Antibody Non-Reactive (Nonreactive) C.trachomatis DNA (PCR) Negative (Negative) Glucose 1 Hr 50 gm 141 mg/dL (70-140) H Miscellaneous Test Assessment & Plan (1) 40 weeks gestation of : PLAN: Misoprostol for IOL status reassuring
[2021-03-12 10:27] LABS: Amphetamine Urine VISTA NEGATIVE (<1000 ng/mL); Barbiturate Urine VISTA NEGATIVE (< 200 ng/mL); Benzodiazepine Urine VISTA NEGATIVE (< 200 ng/mL); Cocaine Urine VISTA NEGATIVE (< 300 ng/mL); Ecstacy Urine VISTA NEGATIVE (< 500 ng/mL); Methadone Urine VISTA NEGATIVE (< 300 ng/mL); PCP Urine VISTA NEGATIVE (< 25 ng/mL); THC Urine VISTA NEGATIVE (< 50 ng/mL); Vista UDS pH Range 7
--- NOTE | 2021-03-12 13:19 | PN.OBGYN_ITS ---
Subjective Subjective Reports mild pressure with contractions. Objective Data Objective Data Vital Signs: Vital Signs Temp Pulse BP Pulse Ox 98.6 F 78 133/86 H 97 03/12/21 11:39 03/12/21 11:39 03/12/21 11:39 03/12/21 11:39 Weight: 94.6 kg Body Mass Index (BMI) 39.4 Intake & Output: Intake and Output for Last 24 Hours 03/10/21 03/11/21 03/12/21 23:59 23:59 23:59 Intake Total 125 / 125 Balance 125 / 125 Lab / Micro Data Result Diagrams: 03/12/21 07:30 Labs: Laboratory Results - last 24 hr 03/12/21 07:30: WBC 10.3, RBC 3.80 L, Hgb 11.6 L, Hct 34.0 L, MCV 89.5, MCH 30.5, MCHC 34.1, RDW Std Deviation 43.0, RDW Coeff of Omega 13.2, Plt Count 222, MPV 10.8, Immature Gran % (Auto) 0.500, Neut % (Auto) 74.4 H, Lymph % (Auto) 17.9 L, [place] % (Auto) 5.6, Eos % (Auto) 1.3, Baso % (Auto) 0.3, Absolute Neuts (auto) 7.7, Absolute Lymphs (auto) 1.84, Nucleated RBC % 0 03/12/21 07:30: Blood Type O POSITIVE, Antibody Screen NEGATIVE 03/12/21 09:50: Urine Opiates Screen NEGATIVE, Urine Methadone Screen NEGATIVE, Ur Barbiturates Screen NEGATIVE, Ur Phencyclidine Scrn NEGATIVE, Ur Amphetamines Screen NEGATIVE, U Methamphetamin-MDMA NEGATIVE, U Benzodiazepines Scrn NEGATIVE, Urine Cocaine Screen NEGATIVE, U Cannabinoids Screen NEGATIVE, Ur Drug Screen Comment Micro: Microbiology 03/12/21 07:40 Mucosa - Nose SARS-CoV-2 Antigen (Rapid) - Final Physical Exam Const alert, oriented x3 and no apparent distress Narrative: /-3, moderate and midposition NST FHR Rate Baby A Baseline: 130 Variability:: Moderate Accelerations:: 15 x 15 Decelerations:: None NST Reactive:: Yes FHR Category:: Category I Uterine Activity:: 12/07 Assessment & Plan (1) 39 weeks gestation of : PLAN: s/p misoprostol x 1 with contrations Guzman bulb placed - 35cc with speculum Maternal and statuses reassuring
[2021-03-12] MEDS: 0.9% Normal Saline Single 100 ML IV.SOLN. INTRA-UTER (13:21)
[2021-03-12] MEDS: fentaNYL 100 MCG/2 ML Ampul IV ×3 (14:31→19:27)
[2021-03-12] MEDS: Oxytocin 30 units/NS 500 ml 30 UNITS/500 ML IV.SOLN IV (16:29)
[2021-03-12] MEDS: 0.9% Saline Lock 10 ML Syringe IV (16:53)
[2021-03-12] MEDS: Lactated Ringers 500 ML 999 ML IV (21:30)
[2021-03-12] MEDS: fentaNYL-bupivacaine (epidural) 100 ML BAG EPIDURAL (22:58)
[2021-03-13] VITALS (29 sets, daily range): BP systolic 107–157; BP diastolic 56–89; PULSE 72–103; RESP 18; TEMP 35.7–37.2; O2SAT 95–100
[2021-03-13] MEDS: Lactated Ringers 1,000 ML 200 ML IV ×2 (00:34→05:27)
[2021-03-13] MEDS: fentaNYL-bupivacaine (epidural) 100 ML BAG EPIDURAL ×2 (03:35→08:39)
--- NOTE | 2021-03-13 07:50 | PCM.PN.BLA ---
Progress Note No complaints. Comfortable with epidural. Physical Exam Narrative GEN - NAD, AAO x 3 FHR 130, moderate variability, + accelerations, no deceleration TOCO 3-4/10 min SVE 10/100/0 station per RN exam A/P: 30yo @ 40 1/7 weeks gestation, Cat I FHR -Proceed with pushing -Anticipate Assessment & Plan Assessment/Plan (1) 40 weeks gestation of :
[2021-03-13] MEDS: Oxytocin 30 units/NS 500 ml 30 UNITS/500 ML IV.SOLN 334 UNITS IV (09:01)
--- NOTE | 2021-03-13 09:13 | EX.PCM.OBRPT ---
Assessment & Plan (1) Shoulder dystocia during labor and delivery: COMMENT: mild, 30 seconds- positional, required fabiana and suprapubic, no sequela (2) Vaginal delivery: COMMENT: IOL dec FM 40 girl Oriya, mild shoulder dystocia Vaginal Delivery Operative Information Date of Procedure: 03/13/21 Pre-Operative Diagnosis: IOL decreased fm Post-Operative Diagnosis: same Surgery / Procedure Performed: Spontaneous Vaginal Delivery Type of Anesthesia: Epidural Special Medications: none Estimated Blood Loss: 100 Fluids Replaced: crystalloid Findings Description of Procedure: Patient began pushing and delivered the head in the LOUIS presentation. The head was delivered atraumatically. Initially a mild shoulder dystocia was encountered but with position changes of the patient, Fabiana and suprapubic this resolved in less than 30 seconds. The anterior and posterior shoulders delivered without complication followed by the rest of the infant and the infant was placed on the maternal abdomen. Delayed cord clamping was employed for approximately 60 seconds. Cord was clamped and cut and gentle traction was applied to the cord and the placenta delivered spontaneously immediately following it was noted to be intact with three-vessel cord. The perineum and vagina were inspected and noted to have no laceration. EBL was 100 cc. Patient and infant tolerated delivery well. Presentation: LOUIS Amniotic Membrane Rupture Type: Artificial Amniotic Fluid Description: Clear Placental Delivery Description: Spontaneous Placenta Disposition: [facility] Cord Vessel Description: 3 Vessels Cord Entanglement: None Infant A Gender: Female Delayed Cord Clamping: Yes Post Vaginal Delivery Medications Given After Delivery: IV Pitocin Episiotomy Description: None Laceration: None Complication Complications: - (mild shoulder dystocia) Procedures Urinary/Genital [id number]: [id number] Vaginal Delivery Only
[2021-03-13] MEDS: Naproxen 500 MG Tablet PO ×2 (11:28→20:34)
[2021-03-13] MEDS: lamoTRIgine 100 MG Tablet 200 MG PO ×2 (11:28→22:25)
[2021-03-13] MEDS: Prenatal Vits Tablet 1 TABLET PO (11:28)
[2021-03-13] MEDS: 0.9% Saline Lock 10 ML Syringe IV (12:00)
[2021-03-13] MEDS: Acetaminophen 500 MG Tablet 1000 MG PO ×2 (14:11→20:35)
--- NOTE | 2021-03-13 16:21 | NURSING ---
1612- pt has voided 3 times since catheter has been removed. this last void was 125cc, pt stated she felt like she had emptied.
[2021-03-13] MEDS: oxyCODONE 5 MG Tablet PO ×2 (16:27→22:25)
--- NOTE | 2021-03-13 16:27 | CASEMGMT ---
Social Work Labor and Delivery Unit Consult received both mom and baby history of marijuana use and disorder. Chart reviewed and noted that the reported father of baby also has history of bipolar disorder and schizophrenia. delivered this morning, and we will plan to see MOB on 03/14/2021. -KAZ Potts, BOWL ATTENDANT
[2021-03-14 00:25] VITALS: BP 116/70; PULSE 84; RESP 18; TEMP 36.3; O2SAT 97
[2021-03-14] MEDS: Acetaminophen 500 MG Tablet 1000 MG PO ×2 (02:38→09:36)
[2021-03-14] MEDS: Benzocaine/Lanolin/Aloe Vera 1 SPRAY EACH TOPICAL (02:47)
[2021-03-14] MEDS: Naproxen 500 MG Tablet PO (04:41)
[2021-03-14 04:49] VITALS: BP 117/72; PULSE 73; RESP 16; TEMP 35.7; O2SAT 96
--- NOTE | 2021-03-14 07:32 | PCM.PN.OB ---
Subjective Subjective No overnight complaints. Pain well controlled. Objective Data Objective Data Vital Signs: Vital Signs Temp Pulse Resp BP Pulse Ox 96.2 F L 73 16 117/72 96 03/14/21 04:49 03/14/21 04:49 03/14/21 04:49 03/14/21 04:49 03/14/21 04:49 Oxygen Delivery Method Room Air Weight: 208 lb 8.917 oz Body Mass Index (BMI) 39.4 Intake & Output: Intake and Output for Last 24 Hours 03/12/21 03/13/21 03/14/21 23:59 23:59 23:59 Intake Total 2503.77 / 2503.77 5079.97 / 5079.97 Output Total 1200 / 1200 2795 / 2795 Balance 1303.77 / 1303.77 2284.97 / 2284.97 Lab / Micro Data Result Diagrams: 03/12/21 07:30 Micro: Microbiology 03/12/21 07:40 Mucosa - Nose SARS-CoV-2 Antigen (Rapid) - Final Physical Exam Const alert, oriented x3, no apparent distress and average body habitus HEENT normocephalic and moist oral mucous membranes Head and Scalp: atraumatic Face and Sinus: normal facial exam Eyes PERRL Neck full ROM Resp normal respiratory effort, no retractions, no use of accessory muscles and clear to auscultation bilaterally GI normal to inspection, nondistended, normoactive bowel sounds Extremity normal to inspection, full ROM and no clubbing, cyanosis or edema Psych mental status grossly normal, affect normal, speech normal and activity/motor behavior normal Assessment & Plan (1) Vaginal delivery: PLAN: day 1. Breast-feeding. Pain well controlled. Shoulder dystocia, resolved by Dr. Sonido Lyles. Possibly discharge home today.
[2021-03-14] MEDS: Prenatal Vits Tablet 1 TABLET PO (09:36)
[2021-03-14] MEDS: lamoTRIgine 100 MG Tablet 200 MG PO (09:36)
[2021-03-14 09:37] VITALS: BP 122/75; PULSE 86; RESP 16; TEMP 36.6; O2SAT 97
--- NOTE | 2021-03-14 11:45 | CASEMGMT ---
Social Work Assessment Labor and Delivery Unit Patient Address: [address] [place], [place] [id number] Phone number: [phone]. Date of Referral: 03/12/2021; 03/13/2021 Time of Referral: 0737; 0914 Referred By: Dr. Cathy Puente; Dr. Gill Date of Intervention: 03/14/2021 Time of Intervention: 1145 Reason for Referral: Maternal history of bipolar disorder and marijuana use in History obtained from: Medical records and mother of baby (MOB) Lea Simeon; father of baby (FOB) Mynor Muñoz present for part of conversation. Household composition: MOB and FOB live together. FOB has a 12-year-old son who visits on the weekends. Home situation is reported as safe and adequate. Patient's parent/guardian status: MOB is a 30-year-old single female involved with the FOB for the last 3-1/2 years. MOB denies any history of abuse or intimate partner violence in this relationship. baby girl, Valentina Muñoz was born on 03/13/2021 and is the first child for MOB. The second for the FOB. FOB is 12-year-old son is named Baldev. Medical History: MOB is 2, para 0 now 1 after delivery of . care started at 11 weeks gestation. Maternal history of PCOS. Baby delivered at 40 weeks gestation and there was a shoulder dystocia. weight 357 0 g. Apgars 8 and 9 at 1 and 5 minutes of life. MOB with a history of 1 miscarriage. Educational Status: MOB graduated from high school. Denies any issues with reading, writing, or learning comprehension. Financial Status: MOB was working part-time at the [employer]. Uncertain whether will return there. FOB has a full-time job on first shift at [email or web address]. MOB reports able to manage with FOB's income. Supplies: Parents report to have needed baby supplies including car seat, crib, bedside bassinet, clothing, diapers, wipes, and a breast pump. Childcare/Caregiver(s): MOB and FOB will be the primary caregivers. Transportation: No issues with transportation reported. Programs/Agencies Involved: MOB has Medicaid through job and family services. Reports to have WIC. Reports to be active at the counseling center and sees Destiney Camarena in psychiatric services. Denies any other agency involvement. Children Services/Legal Issues: None reported. Behavioral Health Issues: Mental Health History: GEOVANI with a history of bipolar disorder and anxiety. GEOVANI endorses history of 5-day psychiatric hospitalization as a teenager with a suicide attempt. Denies any other previous attempts or thoughts of suicide. Denies any thoughts of suicide during this or in the last couple of years. [place] depression screen on 08/28/2020 was a 10 rescore on day of assessment (03/14/2021) is a score of 9 with higher scores in the questions involving anxiety. GEOVANI reports she was prescribed Lamictal and Seroquel. Remained on Lamictal through the and quit Seroquel upon finding out about . Substance Use History: GEOVANI with reported history of marijuana usage. MOB is vague as to when last use words reported it was sometime after finding out about , possibly into the second trimester. MOB denies any alcohol use in . Denies any history of heroin, meth, cocaine, or prescription pill abuse. GEOVANI is a former tobacco smoker. Family History: GEOVANI endorses her sister with a history of marijuana use. Drug Screens: Maternal drug screen positive on 07/31/2020. No rescreen until time of delivery on 03/12/2021 which did come back negative. Infant's urine drug screen is negative. Meconium drug screen is pending. Family/Social Stressors: No identified stressors at this time. Note the FOB does report a history himself of bipolar and schizophrenia, which would be schizoaffective disorder. FOB reports to be on medication including Lamictal and duloxetine. Support Systems: MOB reports the FOB will be off of work for a week and is helpful. MOB reports the FOB is her go to person for emotional support. Additional support from the MOB mother and sister. Depression/Shaken Baby/Safe Sleeping reviewed shaken baby prevention, safe sleeping, and mood and anxiety disorders. Reviewed risk factors and that both mothers and fathers can be at risk for this. ASSESSMENT: Met with the MOB and FOB together, and then along with the MOB. MOB held the baby skin to skin for most of the assessment and then asked the FOB to take the baby and get the baby dressed. FOB did take that baby from the MOB and worked on changing the baby to some clothing. While FOB was attending to the baby, the MOB would often look over at the FOB and told the FOB several times what to do. MOB would apologize and make a comment about just needing to focus on self and let the father be. MOB and FOB appeared relaxed with each other and both engaged in conversation. MOB and FOB report to have needed supplies and adequate support outside of themselves, and if help is needed. MOB plans to continue with psychiatric services at the counseling center and is aware of the risk for depression. Reviewed psychosis with the MOB in conjunction with MOB history of bipolar disorder. Talked with the MOB privately about marijuana usage. MOB reports intent to abstain from marijuana at this time, at least while breast-feeding. Reports to understand that breast-feeding and marijuana usage are not recommended. MOB unable to say for sure what long-term plans for marijuana would be. Educated MOB to need for referral to children services due to infant exposure in utero. MOB expressed understanding and acceptance. Offered MOB time to ask questions. MOB remained calm and pleasant throughout social work visit. MOB and FOB did decline any help me grow or early Headstart services but accepted information and the resource packet this teletypewriter operator provided. mood and anxiety disorder packet also provided. Safe Plan of Care for infant related to substance use: Abstinence of marijuana while breast-feeding. If use is used in the future, no use would be around the infant. There would be at least one sober adult. PLAN: MOB and infant will discharge home today. Community resource information provided. Will notify children services of substance exposure in utero. -DAVY Potts, PRESS SHOP SUPERVISOR *Information documented in this assessment generated with [employer] System*
--- NOTE | 2021-03-14 14:35 | PCM.DC ---
Discharge Instructions Diet Discharge Diet: No restrictions Activity Discharge Activity: Return to Normal Activity May resume sexual activity in: 4-6 weeks Weight Bearing Status: Weight bearing as tolerated Dressing / Incision Call your doctor if your incision/area has: Continuous Slow Oozing and Foul Smelling Discharge Call your doctor if you observe: Fever of 101 or Higher, Shortness of breath and Chest pain Follow Up Care Please Follow Up With: Cathy Arredondo MD When: 2-week telehealth, 4 to 6-week Test Results: Test results from this visit will be discussed in further detail at your follow-up appointment, if applicable. Discharge Plan Admission Admit Date/Time: 03/12/21 06:55 Attending Provider: Jill Howard Primary Care Provider: Yaw Daniels Discharge Orders/Prescriptions Prescriptions: No Action lamotrigine 200 mg tablet 200 mg PO BID RF: 0 PNV Folic Acid + Iron 27 mg iron- 1 mg Tablet 1 tab PO DAILY RF: 0 Referrals / Follow Up: Yaw Daniels DO [Primary Care Provider] - Disposition Discharge Orders: Discharge Patient (Routine); Ordered 03/14/21 Ordered By: Dr. Lauro Thacker
[2021-03-14 14:56] VITALS: BP 138/90; PULSE 87; RESP 18; TEMP 36.1; O2SAT 95
[2021-03-14 15:15] VITALS: BP 132/85
--- NOTE | 2021-03-14 15:26 | CASEMGMT ---
Social Work Labor and Delivery Unit Called [facility] children services and spoke with Melania Durham in the intake department, , extension [phone]. 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 Reported maternal and paternal history of mental health with 's parents. Brief maternal and history is provided. Will monitor for meconium drug screen results. Children services aware of discharge today. No other services requested or indicated other than monitoring for meconium drug screen results. -KAZ Potts, INPATIENT SERVICES RN *Information documented generated via the [employer] system.*
--- NOTE | 2021-03-25 13:07 | CASEMGMT ---
Social Work Labor and Delivery Unit 's meconium drug screen results are back and positive. Refer to infant's chart for further details. Called [facility] services and spoke with Marybeth in the intake department, , extension [phone]. Updated Marybeth to new information. No other social work services requested or indicated. -KAZ Potts, EDGING MACHINE SETTER *Information generated via the [employer] system.*
== END 2021-03-14 15:20 | disposition home or self-care (01) | DRG 560 ==
PROVIDERS: Admitting Provider Obstetrics & Gynecology; PCP Preventive Medicine Occupational Medicine; Referring Provider Obstetrics & Gynecology; Visit Provider Obstetrics & Gynecology
DX: O36.8130 Decreased fetal movements, third trimester, not applicable or unspecified (principal); Z3A.40 40 weeks gestation of pregnancy; Z37.0 Single live birth; Z87.891 Personal history of nicotine dependence; O66.0 Obstructed labor due to shoulder dystocia
CPT/HCPCS: 59025; 59050; 80307; 85025; 86850; 86900; 86901; 87426; 99218; J7120; A4216; G0378

== ENCOUNTER → 2022-05-08 | Outpatient (CLI) | payer MEDICAID, SELFPAY ==
[2022-05-15 10:45] LABS: HPV APTIMA, High Risk Negative (Negative)
== END | disposition home or self-care (01) ==
LOC: LABSPEC 16:02
PROVIDERS: PCP Preventive Medicine Occupational Medicine; Visit Provider Student in an Organized Health Care Education/Training Program
DX: Z12.4 Encounter for screening for malignant neoplasm of cervix (principal)
CPT/HCPCS: 87624; 88175; G0145

== ENCOUNTER → 2023-05-18 | Outpatient (CLI) | payer MEDICAID, SELFPAY ==
--- NOTE | 2023-05-18 15:29 | BI_ITS ---
MAMMOGRAPHY - BILATERAL SCREENING REASON FOR EXAM: Female, 32 years old. Routine annual screening examination. PERTINENT HISTORY: Mother with breast cancer. Sister has ovarian cancer. TECHNIQUE: Digital bilateral breast mary (3D mammographic acquisition) in the CC and MLO projections. 2-D mediolateral oblique (MLO) and craniocaudad (CC) views of both breasts were obtained. CAD: Full Field Digital Mammography with Computer Added Detection was performed. COMPARISON: None. Baseline examination. FINDINGS: Breast Composition: There are scattered areas of fibroglandular density. There are no dominant masses or suspicious calcifications. No other significant abnormalities are identified. BI/SCRN MAMM (CAD)W/MARY BILAT IMPRESSION: Negative screening mammogram. Yearly followup mammogram recommended. (A) ASSESSMENT CATEGORY: BIRADS Category 1: Negative. A letter regarding these results will be sent to the patient by the facility within 30 days. Approximately 10% of breast cancers are not detected by mammography. A normal mammogram should not delay biopsy of a clinically suspicious abnormality. [id number] Electronically Signed: Bowen Ruiz MD at 8:36 EDT ,
== END | disposition home or self-care (01) ==
LOC: OPBI 15:28
PROVIDERS: PCP Student in an Organized Health Care Education/Training Program; Referring Provider Obstetrics & Gynecology; Visit Provider Obstetrics & Gynecology
DX: Z12.31 Encounter for screening mammogram for malignant neoplasm of breast (principal)
CPT/HCPCS: 77063; 77067